=== PATIENT | male | born 1970 | race Caucasian/White ===

== ENCOUNTER → 2016-09-28 | Outpatient (CLI) | payer OTHER ==
[~2016-09-28] MED LIST: LEVO-366 PO
== END | disposition home or self-care (01) ==
LOC: C.LAB 14:58
DX: Z02.83 Encounter for blood-alcohol and blood-drug test (principal)

== ENCOUNTER 2016-09-30 01:31 | Emergency (ER) | payer OTHER ==
[~2016-09-30] VITALS: Ht 182.9 cm; Wt 90.6 kg
[2016-09-30 01:35] VITALS: BP 136/88; PULSE 95; TEMP 37; O2SAT 96; Ht 182.9 cm; Wt 90.6 kg
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
[2016-09-30] MEDS ORDERED: LEVAQUIN 500MG / 100ML D5W IV ONE (02:00)
[2016-09-30] MEDS ORDERED: LEVO-366 PO (02:28)
--- NOTE | 2016-09-30 07:44 | DIAGNOSTIC IMAGING REPORT ---
LEFT ELBOW MIN 3 VIEWS ROUTINE CLINICAL HISTORY: Left elbow pain. Infection with open posterior elbow wound. COMPARISON: None FINDINGS: Extensive postsurgical findings are noted consistent with internal fixation of the distal left humerus and proximal left ulna, including medial and lateral plates of the distal left humerus and olecranon plate. View demonstrates irregularity of a plate of the distal left humerus. There are old screw tracks within the proximal shaft of the left ulna. Small radiodensities along the lateral plate of the distal left humerus are noted. There is soft tissue swelling shown on lateral projection. There is no convincing evidence for joint effusion. No unexpected radiopaque foreign bodies are identified. There is mild lucency surrounding several distal left humeral screws. There is sclerosis of the distal left humerus which suggests a healing fracture. Cortical irregularity is noted. IMPRESSION: 1. Status post distal left humeral and proximal left ulnar internal fixation. Apparent irregularity of the distal left humeral plate shown on lateral projection. This could be artifactual although a disrupted plate could appear similar. Mild lucency surrounding several distal left humeral screws. 2. Lucency and sclerosis of the distal left humerus. This this is nonspecific and likely reflects healing fracture although osteomyelitis could appear similar. Correlation with prior postsurgical imaging would be of benefit. 3. Soft tissue swelling posterior to the distal left humerus. No joint effusion. Electronically signed by: Darin Alonzo M.D. 09/30/2016 7:42 AM Dictated Date/Time: 09/30/2016 7:36 AM
== END 2016-09-30 02:40 | disposition left against medical advice (07) ==
LOC: C.EDB 01:32
DX: S51.012D Laceration without foreign body of left elbow, subsequent encounter (principal); V99.XXXD Unspecified transport accident, subsequent encounter; Z86.19 Personal history of other infectious and parasitic diseases; F17.210 Nicotine dependence, cigarettes, uncomplicated; Z82.49 Family history of ischemic heart disease and other diseases of the circulatory system; Z80.9 Family history of malignant neoplasm, unspecified; Z83.79 Family history of other diseases of the digestive system; Z84.1 Family history of disorders of kidney and ureter

== ENCOUNTER 2022-04-16 11:56 | Inpatient (IN) ==
--- NOTE | 2022-04-16 13:32 | Emergency Department Note ---
Impression & Plan Psychosis, Hallucinations, Homicidal ideation, Agitation ED Provider Note NAME: ONEIL DENNY AGE: 52 SEX: M : 1970 ARRIVES VIA: Ambulance INFORMANT: Patient, ED PROVIDER(S): Jonathon Vigil DO CHIEF COMPLAINT: Altered mental status HPI: The patient is a 52-year-old male who presented to the emergency department for an evaluation of altered mental status. The patient himself states that he has no problems but he states yesterday between 3 and 6 PM he started having weird visual hallucinations. He states it was like flashing lights especially in his left eye. He denies having any headache. He does have a history of seizure but states he did not have a seizure. He denies having any changes to his medications. He was not seen by his primary care physician for these symptoms but his significant other did call 911 and the patient arrived via BLS. He offers no complaints at this time. He denies having any headache or difficulty breathing. He denies having any chest pain. He denies having any weakness in arms or legs. He does complain of some UTI symptoms including groin pain and dysuria. He denies having any fever or headache. ROS: See above HPI for pertinent positives & negatives. A total of 10 systems reviewed and were otherwise negative. PAST MEDICAL HISTORY: See Below PAST SURGICAL HISTORY: See Below FAMILY HISTORY: See Below SOCIAL HISTORY: See Below HOME MEDICATIONS: See Below ALLERGIES: See Below VITALS: See Below PHYSICAL EXAMINATION: GENERAL: Patient is awake alert in no acute distress patient is resting comfortably and appears somewhat anxious and guarded. EYES: The conjunctivae are clear. The pupils are round and reactive. EARS, NOSE, MOUTH AND THROAT: The nose is without any evidence of any deformity. NECK: The neck is nontender and supple. RESPIRATORY: Normal respiratory effort is noted there is no evidence of wheezing rhonchi or rales CARDIOVASCULAR: Regular rate and rhythm noted there no murmurs rubs or gallops normal S1 normal S2. GASTROINTESTINAL: The abdomen is soft. Abdomen is nontender. BACK: No midline tenderness or or step-off noted range of motion in flexion extension as well as rotation no signs of muscle spasm noted MUSCULOSKELETAL/EXTREMITIES: There is no evidence of gross deformity full range of motion is noted in the hips and shoulders. SKIN: There is no obvious evidence of any rash. There are no petechiae, pallor or cyanosis noted. NEUROLOGIC: Patient is awake alert and oriented x3 strength is symmetric patellar reflexes are 2+ bilaterally PSYCH: The patient is awake and somewhat agitated. He appears to be angry at times. He does admit to some homicidal ideation and some hallucinations. MEDICAL DECISION MAKING: The patient is a 52-year-old male who presented to the emergency department initially for a medical evaluation. The patient admitted to having some hallucinations and to be confused at times. Initially a weakness work-up was ordered. During the patient's evaluation he became very agitated. He pulled out his line and left his room. He tried to run away. We tried to redirect the patient multiple times. I reviewed the patient's previous medical visits that show that he does have some episodes of seizure but also has a history of some mental health evaluations in the past. The patient required sedation in the emergency department for his own safety as well as safety of the staff. The patient was reevaluated multiple times. He was medically cleared in the emergency department. He was evaluated by the mental health family service caseworker. A 302 petition was filled out. I did fill out the initial evaluation but the patient at this time is still pending his reevaluation by the mental health delegate. The patient was signed out to Dr. Henry at change of shift. Please see his note for continuation of care and further disposition. Triage Nursing notes reviewed. Prior medical records reviewed Vital Signs: reviewed and remarkable for no significant abnormalities Differential diagnosis: Infection, hypoglycemia, electrolyte abnormalities, overdose, toxicologic, cardiac sources, intracerebral event, neurologic, trauma, as well as other pathologies. ER treatment provided: See below Diagnostics interpreted by me: ECG: EKG was obtained in the emergency department. My interpretation is sinus rhythm at 65 bpm. There is no ectopy. Nonspecific T wave abnormalities were noted in the high lateral and the anterior leads. This was compared to a tracing from January 27, 2022. No changes were noted. Cardiac Monitoring: An order was placed for continuous cardiac monitoring. The monitor shows a rate of 75 bpm with sinus rhythm. Laboratory studies: As stated above and show below. Imaging studies: See below Consultation(s): none ED COURSE: Procedures: none Critical Care: I have personally spent greater than 45 minutes of critical care time in the direct management of this patient. This includes bedside care, interpretation of diagnostic studies, and testing, discussion with consultants, patient, and family members, and other required patient management activities. This 45 minutes is in excess of all separately billable procedures. Past Med/Surg History Medical History Complex partial seizure Migraine Tobacco use disorder (02/26/13) Surgical History History of cholecystectomy History of hand surgery Family History Father Heart disease Mother Cancer Social History Smoking Status: Current every day smoker Tobacco Type: Cigarettes packs per day: 0.50; Feels Safe at Home: Yes Allergies Allergies Allergy/AdvReac Type Severity Reaction Status Date / Time phenytoin Allergy Intermediate HIVES Verified 03/26/22 13:25 valproic acid Allergy Intermediate HIVES Verified 03/26/22 13:25 aspirin AdvReac Unknown BRUISING Verified 03/26/22 13:25 Home Meds Home Medications Medication Instructions Recorded Confirmed buprenorphine 8 mg-naloxone 2 mg 1.5 tab sublingual DAILY 01/27/22 03/26/22 sublingual tablet hydroxyzine HCl 10 mg tablet 10 mg PO BID PRN Anxiety 01/27/22 03/26/22 ibuprofen 200 mg tablet 400 - 600 mg PO Q8 PRN Pain 01/27/22 03/26/22 Previous Rx's Medication Instructions Recorded propranolol 20 mg tablet 20 mg PO BID #60 tabs 03/26/22 sumatriptan succinate 100 mg tablet 100 mg PO DIRECTED PRN Migraine 03/26/22 Headache #9 tabs lamotrigine 100 mg tablet 100 mg PO BID 30 days #60 tabs 04/05/22 lamotrigine 25 mg tablet (Lamictal) 25 mg PO BID 30 days #60 tabs 04/09/22 Results & Data (ED) Vital Signs Vital Signs - 24 hr 04/16/22 12:00 04/16/22 14:43 04/16/22 15:54 Temperature 36.8 C Temperature Source Oral Pulse Rate 63 Pulse Rate [Right Finger] 67 75 Respiratory Rate 18 18 18 Respiratory Effort / Characteristics Non-Labored Non-Labored Respiratory Depth Normal Normal Respiratory Pattern Regular Regular Blood Pressure 117/75 Blood Pressure [Left Arm] 140/88 136/76 Blood Pressure Mean 89 Blood Pressure Mean [Left Arm] 105 96 Blood Pressure Position Semi-fowlers Blood Pressure Position [Left Arm] Lying Pulse Oximetry 96 99 97 Oxygen Delivery Method Room Air Room Air Room Air Sepsis Recent Fever Within 48 Hours No Sepsis New/Unexplained Change in Mental Status N/A Sepsis Action Taken by Nursing No Action Required Home Medications Current Medication List: was personally reviewed by me Laboratory Data Attestation: I reviewed the patient's lab results. Result diagrams: 04/16/22 12:10 04/16/22 12:10 Lab Results 04/16/22 04/16/22 04/16/22 Range/Units 12:10 12:10 12:10 WBC 5.65 (4.8-10.8) K/ul RBC 4.04 L (4.63-6.08) M/uL Hgb 12.5 L (14.0-18.0) g/dl Hct 37.1 L (40.1-51.0) % MCV 91.8 (80.0-100.0) fL MCH 30.9 (25.0-34.0) pg MCHC 33.7 (32.0-36.0) g/dL RDW Std Deviation 46.2 (36.4-46.3) fL RDW Coeff of Roland 13.7 (11.5-14.5) % Plt Count 162 (130-400) K/uL MPV 10.1 (9.4-12.4) fL Immature Gran % (Auto) 0.2 % Neut % (Auto) 73.6 % Lymph % (Auto) 21.8 % [place] % (Auto) 3.7 % Eos % (Auto) 0.2 % Baso % (Auto) 0.5 % Neut # (Auto) 4.16 (1.4-6.5) K/uL Lymph # (Auto) 1.23 (1.2-3.4) K/uL [place] # (Auto) 0.21 L (0.24-0.82) K/uL Eos # (Auto) 0.01 (0-0.50) K/uL Baso # (Auto) 0.03 (0-0.2) K/uL Immature Gran # (Auto) 0.01 (0.00-0.02) K/uL Sodium 135 L (136-145) mmol/L Potassium 4.7 (3.5-5.1) mmol/L Chloride 102 (98-107) mmol/L Carbon Dioxide 26 (21-32) mmol/L Anion Gap 7 (3-11) BUN 25 H (6-23) mg/dl Creatinine 1.46 H (0.6-1.4) mg/dl Est Cr Clr Drug Dosing 57.4 ml/min Est GFR ( Amer) 63.2 ml/min Est GFR (Non-Af Amer) 54.5 ml/min BUN/Creatinine Ratio 17.1 (10-20) Glucose 119 H (70-99(Fasting)) mg/dl Calcium 10.1 (8.5-10.1) mg/dl Total Bilirubin 0.6 (0.2-1.0) mg/dl AST 35 (13-39) U/L ALT 28 (7-52) U/L Alkaline Phosphatase 104 (34-104) U/L Troponin I High Sens 11.6 (0-20) pg/ml Total Protein 8.0 (6.0-8.3) gm/dl Albumin 4.4 (3.4-5.0) gm/dl Globulin 3.6 (2.5-4.0) gm/dl Albumin/Globulin Ratio 1.2 (0.9-2) TSH (0.300-4.500) uIu/ml Urine Color Urine Appearance (Clear) Urine pH (4.5-7.5) Ur Specific [place] (1.000-1.030) Urine Protein (Negative) Urine Glucose (UA) (Negative) Urine Ketones (Negative) Urine Blood (Negative) Urine Nitrite (Negative) Urine Bilirubin (Negative) Urine Urobilinogen (Negative) Ur Leukocyte Esterase (Negative) Urine WBC (Auto) (0-5) /hpf Urine RBC (Auto) (0-4) /hpf U Hyaline Cast (Auto) (0-5) /lpf U Epithel Cells (Auto) (0-5) /lpf Urine Bacteria (Auto) (Negative) Salicylates (3.0-30) mg/dl Urine Opiates Screen (Neg) Ur Methadone, Qual (Neg) Acetaminophen (10-30) ug/ml Urine Barbiturates (Neg) Ur Phencyclidine (PCP) (Neg) U Amphetamin/Meth Scrn (Neg) MDMA (Ecstasy) Screen (Neg) U Benzodiazepines Scrn (Neg) Ur Cocaine Metabolite (Neg) U Marijuana (THC) Screen (Neg) Ethyl Alcohol mg/dL (<10.0) mg/dl SARS-CoV-2, RNA, NAAT (NEGATIVE) 04/16/22 04/16/22 04/16/22 Range/Units 12:10 12:10 15:52 WBC (4.8-10.8) K/ul RBC (4.63-6.08) M/uL Hgb (14.0-18.0) g/dl Hct (40.1-51.0) % MCV (80.0-100.0) fL MCH (25.0-34.0) pg MCHC (32.0-36.0) g/dL RDW Std Deviation (36.4-46.3) fL RDW Coeff of Roland (11.5-14.5) % Plt Count (130-400) K/uL MPV (9.4-12.4) fL Immature Gran % (Auto) % Neut % (Auto) % Lymph % (Auto) % [place] % (Auto) % Eos % (Auto) % Baso % (Auto) % Neut # (Auto) (1.4-6.5) K/uL Lymph # (Auto) (1.2-3.4) K/uL [place] # (Auto) (0.24-0.82) K/uL Eos # (Auto) (0-0.50) K/uL Baso # (Auto) (0-0.2) K/uL Immature Gran # (Auto) (0.00-0.02) K/uL Sodium (136-145) mmol/L Potassium (3.5-5.1) mmol/L Chloride (98-107) mmol/L Carbon Dioxide (21-32) mmol/L Anion Gap (3-11) BUN (6-23) mg/dl Creatinine (0.6-1.4) mg/dl Est Cr Clr Drug Dosing ml/min Est GFR ( Amer) ml/min Est GFR (Non-Af Amer) ml/min BUN/Creatinine Ratio (10-20) Glucose (70-99(Fasting)) mg/dl Calcium (8.5-10.1) mg/dl Total Bilirubin (0.2-1.0) mg/dl AST (13-39) U/L ALT (7-52) U/L Alkaline Phosphatase (34-104) U/L Troponin I High Sens (0-20) pg/ml Total Protein (6.0-8.3) gm/dl Albumin (3.4-5.0) gm/dl Globulin (2.5-4.0) gm/dl Albumin/Globulin Ratio (0.9-2) TSH 1.472 (0.300-4.500) uIu/ml Urine Color Urine Appearance (Clear) Urine pH (4.5-7.5) Ur Specific [place] (1.000-1.030) Urine Protein (Negative) Urine Glucose (UA) (Negative) Urine Ketones (Negative) Urine Blood (Negative) Urine Nitrite (Negative) Urine Bilirubin (Negative) Urine Urobilinogen (Negative) Ur Leukocyte Esterase (Negative) Urine WBC (Auto) (0-5) /hpf Urine RBC (Auto) (0-4) /hpf U Hyaline Cast (Auto) (0-5) /lpf U Epithel Cells (Auto) (0-5) /lpf Urine Bacteria (Auto) (Negative) Salicylates < 3.0 L (3.0-30) mg/dl Urine Opiates Screen (Neg) Ur Methadone, Qual (Neg) Acetaminophen < 3 L (10-30) ug/ml Urine Barbiturates (Neg) Ur Phencyclidine (PCP) (Neg) U Amphetamin/Meth Scrn (Neg) MDMA (Ecstasy) Screen (Neg) U Benzodiazepines Scrn (Neg) Ur Cocaine Metabolite (Neg) U Marijuana (THC) Screen (Neg) Ethyl Alcohol mg/dL < 10.0 (<10.0) mg/dl SARS-CoV-2, RNA, NAAT (NEGATIVE) 04/16/22 04/16/22 04/16/22 Range/Units Unknown Unknown Unknown WBC (4.8-10.8) K/ul RBC (4.63-6.08) M/uL Hgb (14.0-18.0) g/dl Hct (40.1-51.0) % MCV (80.0-100.0) fL MCH (25.0-34.0) pg MCHC (32.0-36.0) g/dL RDW Std Deviation (36.4-46.3) fL RDW Coeff of Roland (11.5-14.5) % Plt Count (130-400) K/uL MPV (9.4-12.4) fL Immature Gran % (Auto) % Neut % (Auto) % Lymph % (Auto) % [place] % (Auto) % Eos % (Auto) % Baso % (Auto) % Neut # (Auto) (1.4-6.5) K/uL Lymph # (Auto) (1.2-3.4) K/uL [place] # (Auto) (0.24-0.82) K/uL Eos # (Auto) (0-0.50) K/uL Baso # (Auto) (0-0.2) K/uL Immature Gran # (Auto) (0.00-0.02) K/uL Sodium (136-145) mmol/L Potassium (3.5-5.1) mmol/L Chloride (98-107) mmol/L Carbon Dioxide (21-32) mmol/L Anion Gap (3-11) BUN (6-23) mg/dl Creatinine (0.6-1.4) mg/dl Est Cr Clr Drug Dosing ml/min Est GFR ( Amer) ml/min Est GFR (Non-Af Amer) ml/min BUN/Creatinine Ratio (10-20) Glucose (70-99(Fasting)) mg/dl Calcium (8.5-10.1) mg/dl Total Bilirubin (0.2-1.0) mg/dl AST (13-39) U/L ALT (7-52) U/L Alkaline Phosphatase (34-104) U/L Troponin I High Sens (0-20) pg/ml Total Protein (6.0-8.3) gm/dl Albumin (3.4-5.0) gm/dl Globulin (2.5-4.0) gm/dl Albumin/Globulin Ratio (0.9-2) TSH (0.300-4.500) uIu/ml Urine Color Yellow Urine Appearance Clear (Clear) Urine pH 5.5 (4.5-7.5) Ur Specific [place] 1.018 (1.000-1.030) Urine Protein 2+ H (Negative) Urine Glucose (UA) Negative (Negative) Urine Ketones Negative (Negative) Urine Blood Negative (Negative) Urine Nitrite Negative (Negative) Urine Bilirubin Negative (Negative) Urine Urobilinogen Negative (Negative) Ur Leukocyte Esterase Negative (Negative) Urine WBC (Auto) 0 (0-5) /hpf Urine RBC (Auto) 0-4 (0-4) /hpf U Hyaline Cast (Auto) 0 (0-5) /lpf U Epithel Cells (Auto) 0-5 (0-5) /lpf Urine Bacteria (Auto) Negative (Negative) Salicylates (3.0-30) mg/dl Urine Opiates Screen Neg (Neg) Ur Methadone, Qual Neg (Neg) Acetaminophen (10-30) ug/ml Urine Barbiturates Neg (Neg) Ur Phencyclidine (PCP) Neg (Neg) U Amphetamin/Meth Scrn Neg (Neg) MDMA (Ecstasy) Screen Neg (Neg) U Benzodiazepines Scrn Neg (Neg) Ur Cocaine Metabolite Neg (Neg) U Marijuana (THC) Screen Neg (Neg) Ethyl Alcohol mg/dL (<10.0) mg/dl SARS-CoV-2, RNA, NAAT NEGATIVE (NEGATIVE) Administered Medications Discontinued Medications Haloperidol Lactate (Haloperidol Lactate 5 Mg/Ml 1 Ml Vial) 5 mg IM NOW STA Stop: 04/16/22 14:53 Last Admin: 04/16/22 15:00 Dose: 5 mg Documented By: SRIRAM Haloperidol Lactate (Haloperidol Lactate 5 Mg/Ml 1 Ml Vial) 5 mg IM NOW STA Stop: 04/16/22 15:14 Last Admin: 04/16/22 15:18 Dose: 5 mg Documented By: MT Lorazepam (Lorazepam 1 Mg/1 Ml Syr) 1 mg IM NOW STA; Protocol Stop: 04/16/22 14:53 Last Admin: 04/16/22 15:01 Dose: 1 mg Documented By: [facility] Imaging Data Radiologist's Impression: Head CT 04/16/22 13:29 CT OF THE HEAD WITHOUT CONTRAST CLINICAL HISTORY: Altered mental status. COMPARISON STUDY: MRI of the brain December 14, [address] March 30, 2022. CT DOSE: 614.27 mGy.cm TECHNIQUE: Helical axial images of the head were obtained without IV contrast. Automated exposure control was utilized for the study. A dose lowering technique was utilized adhering to the principles of ALARA. FINDINGS: No acute intracranial hemorrhage, midline shift or mass effect is present. White matter hypodensities are unchanged and favor small vessel disease. The ventricular system is unremarkable. The basal cisterns are patent. No extra-axial collections are present. There are no findings to suggest acute dural sinus thrombosis or acute territorial infarct. No significant calvarial abnormalities are present. Visualized portions of the sinuses and mastoid air cells are clear. IMPRESSION: No acute intracranial findings. ACT 112: Negative or not required by law. Electronically signed by: Darin Alonzo M.D. 04/16/2022 5:04 PM Discharge Plan Visit Data Chief Complaint: Mental Health Evaluation ED Provider: Jonathon Vigil Discharge Problem: Psychosis, Hallucinations, Homicidal ideation, Agitation Patient Disposition: Still a Patient Forms Stand Alone Forms: [facility], Suicide Prevention Resources Prescriptions Prescriptions: No Action lamotrigine 100 mg tablet 100 mg PO BID 30 Days Qty: 60 5RF Rx Instructions: 125mg BID lamotrigine [Lamictal] 25 mg tablet 25 mg PO BID 30 Days Qty: 60 5RF Rx Instructions: total 125mg BID propranolol 20 mg tablet 20 mg PO BID Qty: 60 5RF sumatriptan succinate 100 mg tablet 100 mg PO DIRECTED PRN (Reason: Migraine Headache) Qty: 9 5RF Rx Instructions: take one at onset of migraine, may repeat after two hours prn, limit 2-3 days a week ibuprofen 200 mg Tablet 400 - 600 mg PO Q8 PRN (Reason: Pain) hydroxyzine HCl 10 mg tablet 10 mg PO BID PRN (Reason: Anxiety) buprenorphine-naloxone 8-2 mg tablet, sublingual 1.5 tab SUBLINGUAL DAILY Referrals Referrals: Brandon Greer [Primary Care Provider] -
[2022-04-16 13:33] LABS: Appearance Urine Clear (Clear); Bacteria Urine Automated Negative (Negative); Bilirubin Urine Negative (Negative); Blood Urine Negative (Negative); Cast Urine Automated 0 /lpf (0-5); Color Urine Yellow; Epithelial Cell Urine Auto 0-5 /lpf (0-5); Glucose Urine UA Negative (Negative); Ketones Urine Negative (Negative); Leukocyte Esterase Urine Negative (Negative); Nitrite Urine Negative (Negative); Protein Urine 2+ (Negative); RBC Urine Automated 0-4 /hpf (0-4); Specific Gravity Urine 1.018 (1.000-1.030); Urobilinogen Urine Negative (Negative); WBC Urine Automated 0 /hpf (0-5); pH Urine 5.5 (4.5-7.5)
[2022-04-16 14:48] LABS: Basophils # (auto) 0.03 K/uL (0-0.2); Basophils % (auto) 0.5 %; Eosinophils # (auto) 0.01 K/uL (0-0.50); Eosinophils % (auto) 0.2 %; Hematocrit (blood only) 37.1 % (40.1-51.0); Hemoglobin 12.5 g/dl (14.0-18.0); Immature Granulocytes # (auto) 0.01 K/uL (0.00-0.02); Immature Granulocytes % (auto) 0.2 %; Lymphocytes # (auto) 1.23 K/uL (1.2-3.4); Lymphocytes % (auto) 21.8 %; Mean Corpuscular Hemoglobin 30.9 pg (25.0-34.0); Mean Corpuscular Hgb Conc 33.7 g/dL (32.0-36.0); Mean Corpuscular Volume 91.8 fL (80.0-100.0); Mean Platelet Volume 10.1 fL (9.4-12.4); Monocytes # (auto) 0.21 K/uL (0.24-0.82); Monocytes % (auto) 3.7 %; Neutrophils # (auto) 4.16 K/uL (1.4-6.5); Neutrophils % (auto) 73.6 %; Platelet Count 162 K/uL (130-400); RDW Coefficient of Variation 13.7 % (11.5-14.5); RDW Standard Deviation 46.2 fL (36.4-46.3); Red Blood Count 4.04 M/uL (4.63-6.08); White Blood Count 5.65 K/ul (4.8-10.8)
[2022-04-16] MEDS ORDERED: HALOPERIDOL LACTATE 5 MG/ML 1 ML VIAL IM STA ×2 (14:52→15:13)
[2022-04-16] MEDS ORDERED: LORazepam 1 MG/1 ML SYR IM STA (14:52)
[2022-04-16 15:07] LABS: Albumin Globulin Ratio 1.2 (0.9-2); Albumin Level 4.4 gm/dl (3.4-5.0); BUN Creatinine Ratio 17.1 (10-20); Bilirubin,Total 0.6 mg/dl (0.2-1.0); Calcium 10.1 mg/dl (8.5-10.1); Creatinine Clr Calc Pharmacy 57.4 ml/min; Est GFR (African American) 63.2 ml/min; Est GFR (Non-African American) 54.5 ml/min; Globulin 3.6 gm/dl (2.5-4.0); Potassium 4.7 mmol/L (3.5-5.1)
--- NOTE | 2022-04-16 15:36 | Electrocardiogram Report ---
Test Reason : Blood Pressure : / mmHG Vent. Rate : 065 BPM Atrial Rate : 064 BPM P-R Int : 156 ms QRS Dur : 088 ms QT Int : 400 ms P-R-T Axes : 064 006 069 degrees QTc Int : 416 ms Poor data quality, interpretation may be adversely affected Sinus rhythm Normal ECG When compared with ECG of 27-JAN-2022 00:21, No significant change Confirmed by Adolfo De La Fuente ([id number]) on 04/16/2022 3:35:51 PM Referred By: Confirmed By:Adolfo De La Fuente
[2022-04-16 16:48] LABS: Acetaminophen < 3 ug/ml (10-30); Salicylate < 3.0 mg/dl (3.0-30)
--- NOTE | 2022-04-16 17:06 | CT Scan Report ---
CT OF THE HEAD WITHOUT CONTRAST CLINICAL HISTORY: Altered mental status. COMPARISON STUDY: MRI of the brain December 14, [address] March 30, 2022. CT DOSE: 614.27 mGy.cm TECHNIQUE: Helical axial images of the head were obtained without IV contrast. Automated exposure con trol was utilized for the study. A dose lowering technique was utilized adhering to the principles o f ALARA. FINDINGS: No acute intracranial hemorrhage, midline shift or mass effect is present. White matter hyp odensities are unchanged and favor small vessel disease. The ventricular system is unremarkable. The basal cisterns are patent. No extra-axial collections are present. There are no findings to suggest a cute dural sinus thrombosis or acute territorial infarct. No significant calvarial abnormalities are present. Visualized portions of the sinuses and mastoid air cells are clear. IMPRESSION: No acute intracranial findings. ACT 112: Negative or not required by law. Electronically signed by: Darin Alonzo M.D. 04/16/2022 5:04 PM
[2022-04-16 18:19] LABS: Amphetamines+Metham, Urine Neg (Neg); Barbiturates, Urine Neg (Neg); Benzodiazepine, Urine Neg (Neg); Cocaine, Urine Neg (Neg); MDMA (Ecstacy), Urine Neg (Neg); Methadone, Urine Neg (Neg); Opiate, Urine Neg (Neg); Phencyclidine, Urine Neg (Neg)
--- NOTE | 2022-04-16 19:24 | Emergency Department Note ---
ED Visit Note This patient was signed out to me at shift change by Dr. Vigil. The patient was previously medically cleared and had been given Haldol and Ativan for sedation. He also had a [address] Vigil due to paranoid thoughts and psychosis. I went back and checked on the patient multiple times he is confused about why he was here looking back through his records he has presented like this before. Is there is a history of substance abuse although his drug screen was negative. He was doing okay were able to get the restraints off and he was fine for couple hours but confused he then got agitated again and we had to chemically sedate him with Ativan 1 mg and Haldol 5 mg again. Soft restraints were applied as well. Looking through his chart he does not have any history of mental health disorder although substance abuse. He was seen and admitted to medicine a couple months ago for similar but signed out AMA. I do not think he is able to go home at this point, I did consult Dr. Veloz who saw the patient in ER and will admit him medically. . : Psychosis Qualifiers: Psychosis type: unspecified psychosis type Qualified Code(s): F29 - Unspecified psychosis not due to a substance or known physiological condition
[2022-04-17] MEDS ORDERED: LORazepam 1 MG/1 ML SYR IM STA ×3 (00:25→02:56)
[2022-04-17] MEDS ORDERED: HALOPERIDOL LACTATE 5 MG/ML 1 ML VIAL IM STA (00:25)
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
[2022-04-17] MEDS ORDERED: LORazepam 1 MG/1 ML SYR IV STA ×2 (01:43→03:16)
[2022-04-17] MEDS ORDERED: LORazepam 2 MG in SYRINGE 0 ML IV ONE (02:00)
[2022-04-17] MEDS ORDERED: LORazepam 1 MG/1 ML SYR IM ONE ×2 (02:20→03:05)
[2022-04-17] MEDS: LACTATED RINGER'S 1,000 ML IV SCH ×2 (03:48→11:08)
[2022-04-17] MEDS: HALOPERIDOL LACTATE 5 MG/ML 1 ML VIAL IV PRN ×4 (04:06→17:14)
[2022-04-17 04:22] LABS: Magnesium 1.7 mg/dl (1.7-2.4); Phosphorus 3.1 mg/dl (2.5-4.9)
[2022-04-17] MEDS: LORazepam 1 MG in SYRINGE 0 ML IV PRN ×2 (04:26→13:35)
[2022-04-17 04:55] LABS: Lyme Ab IgG w/WB Rflx Negative (Negative); Lyme Ab IgM w/WB Rflx Negative (Negative)
[2022-04-17] MEDS ORDERED: MoRPHine SULFATE 2 MG/ML CARP IV STA (05:01)
[2022-04-17] MEDS ORDERED: ZIPRASIDONE 20 MG/ML SDV IM STA (06:13)
[2022-04-17 07:31] LABS: Basophils # (auto) 0.02 K/uL (0-0.2); Basophils % (auto) 0.3 %; Eosinophils # (auto) 0.01 K/uL (0-0.50); Eosinophils % (auto) 0.1 %; Hematocrit (blood only) 32.2 % (40.1-51.0); Hemoglobin 11.2 g/dl (14.0-18.0); Immature Granulocytes # (auto) 0.02 K/uL (0.00-0.02); Immature Granulocytes % (auto) 0.3 %; Lymphocytes # (auto) 1.81 K/uL (1.2-3.4); Lymphocytes % (auto) 26.7 %; Mean Corpuscular Hemoglobin 30.9 pg (25.0-34.0); Mean Corpuscular Hgb Conc 34.8 g/dL (32.0-36.0); Mean Platelet Volume 9.5 fL (9.4-12.4); Monocytes % (auto) 8.8 %; Neutrophils # (auto) 4.32 K/uL (1.4-6.5); Neutrophils % (auto) 63.8 %; Platelet Count 132 K/uL (130-400); RDW Coefficient of Variation 13.3 % (11.5-14.5); RDW Standard Deviation 43.5 fL (36.4-46.3); Red Blood Count 3.62 M/uL (4.63-6.08); White Blood Count 6.78 K/ul (4.8-10.8)
[2022-04-17 07:59] LABS: Albumin Level 4.1 gm/dl (3.4-5.0); BUN Creatinine Ratio 21.9 (10-20); Bilirubin Direct 0.2 mg/dl (0-0.2); Bilirubin,Total 0.9 mg/dl (0.2-1.0); Calcium 9.8 mg/dl (8.5-10.1); Creatinine Clr Calc Pharmacy 55.8 ml/min; Est GFR (African American) 56.6 ml/min; Est GFR (Non-African American) 48.8 ml/min; Potassium 3.8 mmol/L (3.5-5.1); Total Protein 7.4 gm/dl (6.0-8.3)
--- NOTE | 2022-04-17 08:24 | Hospitalist Progress Note ---
Date of Service April 17, 2022 Assessment & Plan (1) Metabolic encephalopathy: Plan: 52-year-old male past medical history significant for depression, migraine, complex partial seizures follows with neurology admitted for altered mental status/psychosis/metabolic encephalopathy. Metabolic encephalopathy: Presented via EMS due to altered mental status per partner, with agitation in ER and erratic odd behaviors. Admission alcohol level negative, and urine tox screen is negative. Salicylate and Tylenol levels negative. Urinalysis, chest x-ray without evidence of infection. No fevers or leukocytosis. Procalcitonin normal. BCx/UCx pending. Broad-spectrum antibiotics started 04/17 to cover for meningoencephalitis while MRI pending. Lyme and RPR pending. COVID-19 negative. TSH normal. Ammonia level normal. Creatinine 1.6 which is actually down from baseline. Normal urine and serum osmolality without osmolar gap. CT head without evidence of acute intracranial findings. Brain MRI ordered with seizure protocol given patient's history of complex partial seizures. Neurology consulted and appreciate recommendations: Keppra load 1500mg given, and continue 500mg twice daily. Resume Lamictal when able. EEG to be performed. Psychiatry consulted and appreciate recommendations: Suspect acute encephalopathy/agitated delirium. No evidence of NMS or serotonin syndrome, trend CK. Patient will require one-to-one due to 302 warrant and risk of elopement. Patient was transferred to ICU after receiving multiple doses of haloperidol and Ativan without ability to calm down patient's agitation. Precedex was started by ICU provider. QTc 418. (2) History of drug abuse in remission: Plan: History of drug use in remission. Patient is on Suboxone and per patient's partner he has not missed any doses or taking extra doses. Per partner, he will sometimes have an alcoholic beverage when they go out to dinner or with friends, however not with any regularity. (3) Complex partial seizure disorder: Plan: History of. Unclear if patient is having seizure activity, therefore EEG ordered. Keppra load given as above with twice daily Keppra while admitted. Neurology to follow. (4) Migraine: Plan: History of migraine on Imitrex as needed. (5) Anemia: Plan: History of with hemoglobin 1012 over the last several years. Likely anemia of chronic disease. (6) CKD (chronic kidney disease): Plan: CKD with a baseline creatinine around 1.5, though has had a large range over the last several months. Avoid nephrotoxins and renally dose medications. Plan Full code N.p.o. Low risk for DVT ICU; will continue to follow for eventual downgrade Admission and Anticipated Discharge Date Admission Date: April 17, 2022 Subjective Overnight patient required several doses of Haldol, Ativan, as well as a dose of Geodon for psychomotor agitation. He was also in four-point restraints overnight secondary to concerns regarding his personal safety or intent to harm others. Due to his cognitive status I am unable to ask him any clarifying questions. At times when he responds to my questions, the answers are jumbled and he appears to be answering questions that I am asking. He also appears to be responding to external stimuli at times. Review of Systems Review of Systems: Unobtainable due to mental health condition Physical Exam Constitutional: well developed, + ill appearing, + thin and + disheveled Eyes: PERRL, conjunctivae normal, anicteric sclerae ENMT: External ear and nose normal. Poor dentition. Respiratory: normal respiratory effort, lungs clear to auscultation Cardiovascular: RRR, no murmur, no edema (tachycardic) Gastrointestinal (Abdomen): normal bowel sounds, soft, nontender, no hepatosplenomegaly Musculoskeletal: no cyanosis or clubbing, extremities motor strength 5/5 Skin: no rashes, warm and dry Neurologic: Waxing and waning agitation with somnolence. Moves all extremities, and has good motor strength with all extremities. No slurred speech. Does not answer questions appropriately and at times appears to be responding to external stimuli. Psychiatric: restless, agitated, pulling at restraints Genitourinary: Estrada in place Lymphatic: no cervical or axillary lymphadenopathy Results & Data Results & Data ([facility]) Vital Signs (Past 12 Hours) Vital Signs Temp Pulse Pulse Resp BP Pulse Ox O2 Del Method 04/17/22 07:15 36.7 C 117 H 22 100/67 95 Room Air 04/17/22 02:59 36.3 C L 94 H 18 164/77 H 94 Room Air 04/17/22 02:53 Room Air 04/17/22 02:41 100 H 18 124/71 97 Room Air PG Care Time/CCT Total # of Minutes Spent Total Time Spent with Patient: Total time spent is greater than 50% in coordination of care (as documented) at patient's floor/unit and/or counseling patient: Coding Level of Care Code 26788 Subseq Hosp Care Lvl 3 Diagnoses Metabolic encephalopathy G93.41 History of drug abuse in remission F19.11 Complex partial seizure disorder G40.209 Migraine G43.909 Anemia D64.9 CKD (chronic kidney disease) N18.9
[2022-04-17] MEDS ORDERED: PROPRANOLOL HCL 20 MG TAB PO SCH (09:00)
[2022-04-17] MEDS: lamoTRIgine 25 MG TAB PO SCH ×2 (09:37→20:59)
[2022-04-17] MEDS: lamoTRIgine 100 MG TAB PO SCH ×2 (09:37→20:59)
[2022-04-17] MEDS: BUPRENORPHINE/NALOXONE 8/2 MG TAB SL SCH (09:37)
[2022-04-17] MEDS ORDERED: levETIRAcetam 1,500 MG in 0.9 % SODIUM CHLORIDE 100 ML IV STA (10:04)
--- NOTE | 2022-04-17 10:35 | Neurology Consultation ---
Date of Consultation April 17, 2022 Assessment & Plan (1) Encephalopathy: (2) Myoclonus: Plan 52-year-old male with a history of epilepsy and migraine presenting with agitated delirium, myoclonic jerking. I do of some concern for seizure activity in this patient and have ordered a loading dose of IV Keppra, 1500 mg. I have also ordered an EEG. Continue with Keppra 500 mg IV every 12 hours. Resume lamotrigine when able to take oral medication. Would consider increasing the lamotrigine dosage, however, depending on patient's clinical status. Would also recommend obtaining an up-to-date brain MRI, seizure protocol, without contrast, when patient's agitation improves. Patient's clinical presentation is not highly suggestive of stroke or encephalitis. Continue supportive medical care. History of Present Illness Reason for Consultation: Altered mental status Requesting Physician: Dr. Veloz Attending Physician: Kathy William, DO History of Present Illness The patient is a 52-year-old male who is known to me, he was last seen in neurol ogy clinic March 26, 2022 for seizures and migraine. He has had 3-4 generalized tonic-clonic seizures in the past. He also experiences episodic myoclonus. A brain MRI completed last December revealed chronic microvascular ischemic change and an incidental left cerebellopontine angle arachnoid cyst. An EEG completed in February 2020 was normal. Experiences migrainous headache every 1 to 2 weeks with associated nausea and light sensitivity. History also notable for IV drug abuse, methadone previously, more recently on Suboxone. 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 [facility] neurology has been prescribing this patient sumatriptan hand for his migraines and lamotrigine for seizures. He has previously been prescribed Depakote, phenytoin, and Keppra. He has had hives with use of phenytoin and valproic acid previously. The patient presented to the emergency department yesterday with altered mental status beginning the previous day, complained of seeing flashing lights with the left eye, no associated headache. Had also been confused at times. Became very agitated during his initial assessment, pulling out lines, attempting to leave the emergency department, required redirection. Was evaluated by the mental health case resource manager, 302 petition was filled out. Had apparently been having paranoid thoughts and psychosis. Was given lorazepam and Haldol to address ongoing agitation, also required restraints. Due to ongoing agitation, delirium, patient has been transferred to the ICU. He is an unreliable historian, nurse at bedside. He continues to exhibit irregular myoclonic jerking of the limbs. He will open his eyes, will not follow commands. Becomes agitated, attempts to sit up, grabbed at lines. I see that he was evaluated in the emergency department on March 30, 2022 for mental health evaluation, brought in by police, found to be intoxicated and trying to break into people's cars. He was evaluated by psychiatric case resource manager at that time and cleared for discharge, medically cleared as well. Allergies Allergy/AdvReac Type Severity Reaction Status Date / Time phenytoin Allergy Intermediate HIVES Verified 03/26/22 13:25 valproic acid Allergy Intermediate HIVES Verified 03/26/22 13:25 aspirin AdvReac Unknown BRUISING Verified 03/26/22 13:25 Home Medications Medication Instructions Recorded Confirmed Type buprenorphine 8 mg-naloxone 2 mg 1.5 tab sublingual DAILY 01/27/22 03/26/22 History sublingual tablet hydroxyzine HCl 10 mg tablet 10 mg PO BID PRN Anxiety 01/27/22 03/26/22 History ibuprofen 200 mg tablet 400 - 600 mg PO Q8 PRN Pain 01/27/22 03/26/22 History propranolol 20 mg tablet 20 mg PO BID #60 tabs 03/26/22 03/26/22 Rx sumatriptan succinate 100 mg tablet 100 mg PO DIRECTED PRN Migraine 03/26/22 03/26/22 Rx Headache #9 tabs lamotrigine 100 mg tablet 100 mg PO BID 30 days #60 tabs 04/05/22 Rx lamotrigine 25 mg tablet (Lamictal) 25 mg PO BID 30 days #60 tabs 04/09/22 Rx Patient History Medical History Complex partial seizure Migraine Tobacco use disorder (02/26/13) Surgical History History of cholecystectomy History of hand surgery Family History Father Heart disease Mother Cancer Social History Smoking Status: Unknown if ever smoked Tobacco Type: Cigarettes packs per day: 0.50; Hx Substance Use: Yes Last Used Substance Other:: unknown Preferred Language: Frisian Loom Stop Checker Required: No Current Living Situation: Family Current Living Situation Comment: brought in by EMS, pt very disoriented and confused Feels Safe at Home: Yes Review of Systems Review of Systems: Unobtainable due to cognitive status Exam (Neuro) Constitutional: + thin and + altered mental status Cardiovascular: Vessels: no carotid bruit Neurologic: Oriented to:: negative Person, Place or Time Memory: negative Short Term Intact or Remote Intact Attention: negative Span Intact or Concentration Intact Speech Fluency: Limited Comprehension Fund of Knowledge: negative Current Events, Past History or Vocabulary Cranial Nerves: Normal II, III, IV, , V, VII, VIII, IX, X, XI and XII Motor Strength: Normal Lower Extremities and Normal Upper Extremities Motor Tone: Normal Lower Extremities and Normal Upper Extremities Muscle Bulk/Involuntary Movements: negative No Involuntary Movements (Intermittent generalized myoclonic jerking of the limbs observed) Deep Tendon Reflexes: Rt Biceps: 2+, Lt Biceps: 2+, Rt Patellar: 2+ and Lt Patellar: 2+ Details: Unable to reliably assess individual sensory modalities due to altered mental status. Withdraws limbs to noxious stimulation. Unable to reliably assess coordination due to altered mental status. Limited evaluation of deep tendon reflexes due to agitated delirium. Unable to evaluate gait due to agitated delirium. Unable to perform direct ophthalmoscopic examination. Results & Data ([facility]) Vital Signs (Past 12 Hours) Vital Signs Temp Pulse Pulse Resp BP Pulse Ox O2 Del Method 04/17/22 08:15 96 H 14 100/66 94 Room Air 04/17/22 07:15 36.7 C 117 H 22 100/67 95 Room Air 04/17/22 02:59 36.3 C L 94 H 18 164/77 H 94 Room Air 04/17/22 02:53 Room Air 04/17/22 02:41 100 H 18 124/71 97 Room Air Laboratory Results WBC 6.78, hemoglobin 11.2, hematocrit 32.2, MCV 89.0, platelet count 132, sodium 138, potassium 3.8, BUN 35, creatinine 1.60, glucose 106, calcium 9.8, magnesium 1.7, AST 56, ALT 27, total CK 1882, TSH 1.472, urine tox screen negative, ethyl alcohol negative, Lyme screen negative, SARS-CoV-[address] of the head completed yesterday negative for hemorrhage or acute process. There is evidence of chronic small vessel ischemic disease. No hydrocephalus. I reviewed the images as well as the radiologist's interpretation of this test. Brain MRI completed at [facility] December 14, 2020 was negative for acute process at that time. There is evidence of mild generalized atrophy and chronic microvascular ischemic disease as well as an incidental 2.5 cm left cerebellopon arlette angle arachnoid cyst. I independently reviewed the images as well as the radiologist's interpretation of this test. Electrocardiogram completed December 14, 2021 revealed a sinus rhythm, 65 bpm. Coding Level of Care Code 48488 Initial Inpt Care Lvl 3 Diagnoses Encephalopathy G93.40 Myoclonus G25.3
--- NOTE | 2022-04-17 13:49 | Psychiatric Consultation ---
Date of Consultation April 17, 2022 Impression / Recommendations Impression 52 yo with history of depression, seizures and substance use (on maintenance suboxone) presenting with acute mental status changes, agitation and visual hallucinations. Presentation last month for alcohol intoxication and odd behaviors and refused UDS at that time. Diagnostically consistent with acute encephalopathy, agitated delirium. Unclear if substance-induced vs withdrawal could be a component including from alcohol but UDS negative. Sometimes can see such presentation with PCP use which does not always show up consistently in UDS. QTc normal at this time. No signs to suggest NMS nor serontonin syndrome at this point but would continue to trend CK and monitor vitals closely. (1) Encephalopathy: Plan -Ativan 1-2 mg q2h prn (try not to exceed 12mg max per day) as preference for agitation -If ativan unsuccessful or causing paradoxical increase in agitation would use: thorazine 50mg IM q6h prn up to max dose of 200mg per 24 hours. Would use this only if necessary as can lower seizure threshold and potential for QTc prolongation -Alternative option would be valproic acid IV, would defer to neurology on dosing but can also help with agitation, but has allergy of hives from valproic so would attempt to avoid in favor of choices above. Psych History Identifying Data 52 yo man with history of depression and seziures admitted for confusion. Psychiatry consulted for diagnostic and medication recommendations. Chief Complaint "yeah". History of Present Illness Raúl presented to the ED on 04/16/22 after experiencing visual hallucinations and subsequently became confused and agitated, pulling out his IV line and attempting to elope resulting in 302 warrant. He presented to the ED on 03/30/22 after attempting to break into cars and intoxicated but refused to provide a UDS at that time. Since arriving to the ED yesterday he provided UDS which was negative and has been consistently agitated requiring multiple doses of IM medication including: IV ativan, haldol IM, ziprasidone IM. On my assessment he is oriented to self only, mumbles incoherently and attempts to get out of bed requiring reassurance and was requiring 4 point restraints due to level of agitation and necessity for IV line to allow for keppra infusion. Past Psychiatric History Previous Psych History: depression Previous Psych Admissions: none known Past Medication Trials: lamictal for seizure prevention Allergies Allergy/AdvReac Type Severity Reaction Status Date / Time phenytoin Allergy Intermediate HIVES Verified 03/26/22 13:25 valproic acid Allergy Intermediate HIVES Verified 03/26/22 13:25 aspirin AdvReac Unknown BRUISING Verified 03/26/22 13:25 Home Medications Medication Instructions Recorded Confirmed Type buprenorphine 8 mg-naloxone 2 mg 1.5 tab sublingual DAILY 01/27/22 03/26/22 History sublingual tablet hydroxyzine HCl 10 mg tablet 10 mg PO BID PRN Anxiety 01/27/22 03/26/22 History ibuprofen 200 mg tablet 400 - 600 mg PO Q8 PRN Pain 01/27/22 03/26/22 History propranolol 20 mg tablet 20 mg PO BID #60 tabs 03/26/22 03/26/22 Rx sumatriptan succinate 100 mg tablet 100 mg PO DIRECTED PRN Migraine 03/26/22 03/26/22 Rx Headache #9 tabs lamotrigine 100 mg tablet 100 mg PO BID 30 days #60 tabs 04/05/22 Rx lamotrigine 25 mg tablet (Lamictal) 25 mg PO BID 30 days #60 tabs 04/09/22 Rx Substance Abuse History on suboxone per PDMP appears to be getting regular refills Patient History Medical History Complex partial seizure Migraine Tobacco use disorder (02/26/13) Surgical History History of cholecystectomy History of hand surgery Family History Father Heart disease Mother Cancer Social History Smoking Status: Unknown if ever smoked Tobacco Type: Cigarettes packs per day: 0.50; Hx Substance Use: Yes Last Used Substance Other:: unknown Preferred Language: Divehi Help Desk Administrator Required: No Current Living Situation: Family Current Living Situation Comment: brought in by EMS, pt very disoriented and confused Feels Safe at Home: Yes Physical Exam Psychiatric: Orientation: alert and oriented to person; + not oriented to place and + not oriented to time Apperance: + disheveled Eye Contact: + poor eye contact Motor Behavior: + psychomotor agitation; n EPS and n tremor Speech: + abnormal rate/rhythm/volume of speech (brief ) Affect: + flat affect Mood: + irritable mood Thought Process: + looseness of associations Thought Content: + preoccupation Cognition: + recent memory not intact, + attention not intact and + language not intact Insight: + severely impaired insight Judgement: + severely impaired judgement Vital Signs (Past 24 Hours): Last Vital Signs Temp 36.7 C 04/17/22 07:15 Pulse 82 04/17/22 13:00 Resp 13 04/17/22 13:00 BP 106/69 04/17/22 13:00 Pulse Ox 96 04/17/22 13:00 O2 Del Method 04/17/22 13:00 Review of Systems Unobtainable due to cognitive status Results & Data ([facility]) Laboratory Results elevated CK, negative UDS Diagnostic Findings QTc 416 Medications Administered Buprenorphine/Naloxone (Buprenorphine/Naloxone 8/2 Mg Tab) 1.5 tab SL DAILY ELVIN Stop: 05/17/22 08:59 Last Admin: 04/17/22 09:37 Dose: Not Given Documented By: URSULA Haloperidol Lactate (Haloperidol Lactate 5 Mg/Ml 1 Ml Vial) 5 mg IV Q6H PRN PRN Reason: Agitation Stop: 05/17/22 03:21 Last Admin: 04/17/22 10:20 Dose: 5 mg Documented By: Admin: 04/17/22 04:06 Dose: 5 mg Documented By: SHAWN Lactated Ringer's (Lr) 1,000 mls @ 125 mls/hr IV .Q8H ELVIN Stop: 04/17/22 19:21 Last Admin: 04/17/22 11:08 Dose: 125 mls/hr Documented By: Infusion: 04/17/22 11:08 Dose: 125 mls/hr Documented By: Admin: 04/17/22 03:48 Dose: 125 mls/hr Documented By: HALI Lorazepam 1 mg/ Syringe 1 mls @ 2 mls/min IV Q8H PRN PRN Reason: Anxiety Stop: 05/17/22 03:21 Last Admin: 04/17/22 13:35 Dose: 2 mls/min Documented By: Admin: 04/17/22 04:26 Dose: 2 mls/min Documented By: HALI Lamotrigine (Lamotrigine 100 Mg Tab) 100 mg PO BID ELVIN Stop: 05/17/22 08:59 Last Admin: 04/17/22 09:37 Dose: Not Given Documented By: URSULA Lamotrigine (Lamotrigine 25 Mg Tab) 25 mg PO BID [facility] Stop: 05/17/22 08:59 Last Admin: 04/17/22 09:37 Dose: Not Given Documented By: URSULA Propranolol HCl (Propranolol Hcl 20 Mg Tab) 20 mg PO BID [facility] Stop: 05/17/22 08:59 Last Admin: 04/17/22 09:37 Dose: Not Given Documented By: URSULA Coding Level of Care Code 16146 Inpt Consult Level 3 Diagnoses Encephalopathy G93.40
[2022-04-17] MEDS ORDERED: LORazepam 1 MG in SYRINGE 0 ML IV PRN (14:02)
--- NOTE | 2022-04-17 15:40 | Critical Care Consultation ---
Date of Consultation April 17, 2022 Assessment & Plan (1) Metabolic encephalopathy: (2) Complex partial seizure disorder: (3) Migraine: (4) Hallucinations: (5) Agitation: (6) History of drug abuse in remission: Plan Reason Critically Ill: 52-year-old male with past medical history of drug abuse, complex partial seizure disorder, migraine was admitted to hospital because of altered mental status and agitation. Patient got multiple bouts of haloperidol and benzodiazepine but again not able to get his agitation. ICU consulted for the same Neuro - [facility] ICU: --Acute metabolic encephalopathy Calcium within normal limits Sodium and glucose within normal limit Patient is moving all the extremities appropriately. I highly doubt stroke being a possibility CT head negative on 04/16/2022 Has been afebrile Calculated serum osmolality 296, measured serum osmolality 300, no osmolar gap Patient did get Geodon, haloperidol as well as Ativan QTC 418 04/16/2021 Start the patient on Precedex, get an MRI of the brain --History of complex partial seizure On lamotrigine at home Keppra started by neurology in the hospital Monitor for signs of seizures --History of migraine Cardiac - -- Tachycardia Likely from agitation Respiratory - -- No acute issues GI - -- Transaminitis with elevated CPK Could be from underlying seizures Continue to trend RENAL/LYTES - -- CKD Continue to monitor Avoid nephrotoxic medication Monitor BUNs/creatinine ENDO - ICU hypoglycemia protocol HEME - -- Normocytic anemia Continue to monitor H&H ID - -- No clear source of infection Procalcitonin negative I will give broad-spectrum antibiotics covering for manage encephalitis --Prophylaxis VTE: IPC GI: None Lines:Peripheral Diet:NPO Plan: Follow-up urine and serum osmolality Follow-up urine lites, ammonia level, procalcitonin Continue with Keppra 500 mg twice daily Start the patient on Precedex. Patient has been afebrile. Possibility of infection is low but cannot be ruled out. If MRI is negative then consider LP Follow-up RPR Give the patient dose of vancomycin, Rocephin, ampicillin and acyclovir I have personally spent 65 minutes of critical care time in the direct manag ement of this patient. This is a life/limb threatening event. This includes time spent evaluating patient, direct bedside care, chart review, placing orders, interpretation of diagnostic studies, discussion with consultants, patient, and family members, as well as other required patient management activities. This time is exclusive of all separately billable procedures, and teaching time and separate from and in addition to any other critical care service time. History of Present Illness Attending Physician: Kathy William DO History of Present Illness 52-year-old male presented to the hospital with altered mental status Past medical history: Complex partial seizure, migraine, history of drug abuse on Suboxone Patient was notable to give history. History obtained from patient's girlfriend Andrew as well as ER records At the time of examination patient was in four-point restraint. He was not answering any questions He was tachycardic. Not in respiratory distress He had gotten total of 10 mg of haloperidol, 5 g of Ativan in total He was still restless. I was not able to find any rash on the body. On talking to patient's girlfriend, patient had confusion on March 30, 2022 as well when he came to the ER. He has not been doing any illicit drugs. UDS was also negative. No recent travel history. No tick bite states patient's girlfriend could remember. No fever at home. No diarrhea. Allergies Allergy/AdvReac Type Severity Reaction Status Date / Time phenytoin Allergy Intermediate HIVES Verified 03/26/22 13:25 valproic acid Allergy Intermediate HIVES Verified 03/26/22 13:25 aspirin AdvReac Unknown BRUISING Verified 03/26/22 13:25 Home Medications Medication Instructions Recorded Confirmed Type buprenorphine 8 mg-naloxone 2 mg 1.5 tab sublingual DAILY 01/27/22 03/26/22 History sublingual tablet hydroxyzine HCl 10 mg tablet 10 mg PO BID PRN Anxiety 01/27/22 03/26/22 History ibuprofen 200 mg tablet 400 - 600 mg PO Q8 PRN Pain 01/27/22 03/26/22 History propranolol 20 mg tablet 20 mg PO BID #60 tabs 03/26/22 03/26/22 Rx sumatriptan succinate 100 mg tablet 100 mg PO DIRECTED PRN Migraine 03/26/22 03/26/22 Rx Headache #9 tabs lamotrigine 100 mg tablet 100 mg PO BID 30 days #60 tabs 04/05/22 Rx lamotrigine 25 mg tablet (Lamictal) 25 mg PO BID 30 days #60 tabs 04/09/22 Rx Patient History Medical History Complex partial seizure Migraine Tobacco use disorder (02/26/13) Surgical History History of cholecystectomy History of hand surgery Family History Father Heart disease Mother Cancer Social History Smoking Status: Unknown if ever smoked Tobacco Type: Cigarettes packs per day: 0.50; Hx Substance Use: Yes Last Used Substance Other:: unknown Preferred Language: Mongolian Ict Support Technicians Required: No Current Living Situation: Family Current Living Situation Comment: brought in by EMS, pt very disoriented and confused Feels Safe at Home: Yes Review of Systems Review of Systems: Unobtainable due to mental health condition Physical Exam Physical Exam: Constitutional: No acute distress HEENT: EOMI, pupils normal in size and reactive to light Respiratory system: Decreased air entry bilaterally, no wheeze, no rhonchi, no crackles CVS: S1-S2 positive, no murmurs or gallops, tachycardia Abdomen: Soft, nontender, nondistended, positive bowel sounds x4 Extremities: +2 pulses bilaterally radialis/ dorsalis pedis, no cyanosis, no edema Neuro: Bouts of agitation with somnolence, unable to get too much history, moving all extremities, cranial nerves II to XII grossly intact Psych: Restless and agitated G/U: Positive Estrada Skin: no rashes, warm and dry Lymphatic: no cervical or axillary lymphadenopathy Results & Data Results & Data ([facility]) Vital Signs (Past 12 Hours) Vital Signs Temp Pulse Pulse Resp BP BP Pulse Ox 04/17/22 15:00 92 H 13 123/82 95 04/17/22 14:30 62 12 89/58 L 97 04/17/22 14:01 72 12 97/62 L 93 04/17/22 14:00 73 13 85/59 L 93 04/17/22 11:00 36.6 C 04/17/22 13:00 82 13 106/69 96 04/17/22 12:01 96 H 19 118/90 98 04/17/22 11:00 80 20 134/77 95 04/17/22 10:00 81 13 114/90 93 04/17/22 09:00 83 19 129/80 93 04/17/22 08:15 96 H 14 100/66 94 04/17/22 07:15 36.7 C 117 H 22 100/67 95 O2 Del Method 04/17/22 15:00 Room Air 04/17/22 14:30 Room Air 04/17/22 14:01 Room Air 04/17/22 14:00 Room Air 04/17/22 11:00 04/17/22 13:00 Room Air 04/17/22 12:01 Room Air 04/17/22 11:00 Room Air 04/17/22 10:00 Room Air 04/17/22 09:00 Room Air 04/17/22 08:15 Room Air 04/17/22 07:15 Room Air Laboratory Results 04/17/22 07:06 04/17/22 07:06 Coding Level of Care Code Critical Care 1st 30-74 mins Diagnoses Metabolic encephalopathy G93.41 Complex partial seizure disorder G40.209 Migraine G43.909 Hallucinations R44.3 Agitation R45.1 History of drug abuse in remission F19.11 Time Spent (min) 65
[2022-04-17] MEDS ORDERED: STAT IV Infusion **Titration per Protocol STA (15:45)
[2022-04-17] MEDS: dexMEDEtomidine 200 MCG/50 ML BAG IV SCH ×4 (15:58→22:48)
[2022-04-17 16:33] LABS: Appearance Urine Clear (Clear); Bacteria Urine Automated Negative (Negative); Bilirubin Urine Negative (Negative); Blood Urine 3+ (Negative); Cast Urine Automated 0 /lpf (0-5); Color Urine Yellow; Glucose Urine UA Negative (Negative); Ketones Urine Negative (Negative); Leukocyte Esterase Urine Negative (Negative); Nitrite Urine Negative (Negative); Protein Urine 1+ (Negative); RBC Urine Automated >30 /hpf (0-4); Specific Gravity Urine 1.016 (1.000-1.030); Urobilinogen Urine Negative (Negative); pH Urine 5.5 (4.5-7.5)
[2022-04-17 17:20] LABS: Creatinine Urine Random 84.7 mg/dl; Potassium Random Urine 37.6 mmol/L
[2022-04-17] MEDS: LORazepam 2 MG in SYRINGE 0 ML IV PRN ×2 (17:37→21:00)
[2022-04-17] MEDS ORDERED: VANCOMYCIN CONSULT ACTIVE PRN (17:46)
[2022-04-17] MEDS: cefTRIAXone SODIUM 2,000 MG in DEXTROSE 5% 50 ML IV SCH (17:54)
[2022-04-17] MEDS ORDERED: VANCOMYCIN HCL 1,500 MG in SODIUM CHLORIDE 0.9% 500 ML IV ONE (18:00)
[2022-04-17] MEDS: ACYCLOVIR SOD 700 MG in DEXTROSE 5% 250 ML IV SCH (18:18)
[2022-04-17] MEDS: methylPREDNISolone 40 MG in SYRINGE 0 ML IV SCH (18:19)
[2022-04-17] MEDS: AMPICILLIN 2,000 MG in SODIUM CHLOR 0.9% AD-VAN 100 ML IV SCH ×2 (18:19→21:44)
--- NOTE | 2022-04-17 19:49 | Pharmacy Report ---
Pharmacy PK ABX Note - Date of Service April 17, 2022 - Assessment and Plan Assessment 52 year old M receiving IV vancomycin, ceftriaxone, ampicillin and acyclovir empirically for [employer] coverage. Blood cultures pending. CKD at baseline - SCr trending up 1.46-->1.6 (baseline ~1.5). Day # 1 of antimicrobial therapy. Plan Vancomycin * Loading dose: 1500 mg IV x 1 * Maintenance dose: 1000 mg IV every 18 hours * Regimen is predicted to achieve target AUC/BEV of 400-600 mg/L.hr Pharmacy will continue to follow and will adjust dose/frequency as necessary. Thank you. Pharmacy has transitioned to AUC monitoring for vancomycin. AUC/BEV is the preferred PK/PD target and is associated with decreased risk of nephrotoxicity compared to traditional trough targets.
[2022-04-17] MEDS ORDERED: GADOBUTROL 65ML VIAL IV ONE (20:18)
--- NOTE | 2022-04-17 20:38 | Magnetic Resonance Report ---
MR brain seizure wo/w con CLINICAL HISTORY: ? Seizure causing AMS TECHNIQUE: Multiplanar and multisequence MR images of the brain were obtained prior to and following administration of gadolinium contrast. Comparison: Comparison is made to MRI brain 12/14/2020 FINDINGS: No abnormal restricted diffusion is identified. Foci of T2 and FLAIR hyperintensity are noted in the paraventricular areas consistent with chronic small vessel ischemic disease. The ventricular system i s normal in appearance. No mass or abnormal enhancement is seen. There is no mass effect or midline s hift. There is no evidence of acute intraparenchymal hemorrhage. No extra axial fluid collections are seen. The corpus callosum, pituitary gland, and cerebellar tonsils appear grossly unremarkable. High -resolution images of the temporal lobes do not demonstrate any signal abnormality. Incidental note i s made of a left posterior fossa arachnoid cyst. This is unchanged from Flow voids of the major intracranial arterial vessels are identified. The imaged portions of the para nasal sinuses, mastoid air cells, and orbits are unremarkable. IMPRESSION: No acute abnormality. In particular, no edema in the temporal lobes bilaterally in this postictal pat ient. ACT 112: Negative or not required by law. Electronically signed by: Romero Minaya M.D. 04/17/2022 8:35 PM
--- NOTE | 2022-04-17 21:07 | XRay Report ---
XR chest 1V portable CLINICAL HISTORY: SOB TECHNIQUE: Single frontal radiograph of the chest was obtained. Comparison: Comparison is made to rib series 09/04/2021 FINDINGS: No lines and tubes are seen. The cardiomediastinal silhouette is normal. The lungs are clear. No evid ence of pleural effusion or pneumothorax. IMPRESSION: No acute chest disease. ACT 112: Negative or not required by law. Electronically signed by: Romero Minaya M.D. 04/17/2022 9:04 PM
[2022-04-17] MEDS ORDERED: levETIRAcetam 500 MG in 0.9 % SODIUM CHLORIDE 100 ML IV SCH (22:45)
[2022-04-18] MEDS: ACYCLOVIR SOD 700 MG in DEXTROSE 5% 250 ML IV SCH ×2 (01:10→09:24)
[2022-04-18] MEDS: AMPICILLIN 2,000 MG in SODIUM CHLOR 0.9% AD-VAN 100 ML IV SCH ×6 (01:10→21:05)
[2022-04-18] MEDS: LORazepam 2 MG in SYRINGE 0 ML IV PRN ×2 (02:21→11:30)
[2022-04-18] MEDS: dexMEDEtomidine 200 MCG/50 ML BAG IV SCH (03:50)
[2022-04-18] MEDS ORDERED: VANCOMYCIN HCL 1,000 MG in SODIUM CHLORIDE 0.9% 250 ML IV SCH (04:00)
[2022-04-18 05:14] LABS: Hematocrit (blood only) 30.1 % (40.1-51.0); Hemoglobin 10.4 g/dl (14.0-18.0); Platelet Count 111 K/uL (130-400); White Blood Count 3.71 K/ul (4.8-10.8)
[2022-04-18 05:37] LABS: Mean Corpuscular Hemoglobin 30.8 pg (25.0-34.0); Mean Corpuscular Hgb Conc 34.6 g/dL (32.0-36.0); Mean Corpuscular Volume 89.1 fL (80.0-100.0); RDW Coefficient of Variation 13.3 % (11.5-14.5); RDW Standard Deviation 43.8 fL (36.4-46.3); Red Blood Count 3.38 M/uL (4.63-6.08)
[2022-04-18] MEDS: cefTRIAXone SODIUM 2,000 MG in DEXTROSE 5% 50 ML IV SCH ×2 (05:39→17:01)
[2022-04-18 05:51] LABS: BUN Creatinine Ratio 28.1 (10-20); Calcium 9.3 mg/dl (8.5-10.1); Creatinine Clr Calc Pharmacy 78.3 ml/min; Est GFR (African American) 85.2 ml/min; Est GFR (Non-African American) 73.5 ml/min; Potassium 4.3 mmol/L (3.5-5.1)
[2022-04-18] MEDS: MAGNESIUM SULFATE / D5W 1 GM/100 ML BAG IV SCH ×5 (06:29→23:52)
--- NOTE | 2022-04-18 07:17 | Hospitalist Progress Note ---
Date of Service April 18, 2022 Assessment & Plan (1) Metabolic encephalopathy: Plan: 52-year-old male past medical history significant for depression, migraine, complex partial seizures follows with neurology admitted for altered mental status/psychosis/metabolic encephalopathy. Metabolic encephalopathy: Presented via EMS due to altered mental status per partner, with agitation in ER and erratic odd behaviors. Admission alcohol level negative, and urine tox screen is negative. Salicylate and Tylenol levels negative. Urinalysis, chest x-ray without evidence of infection. No fevers or leukocytosis. Procalcitonin normal. UCx no growth @ 24 hours. BCx POSITIVE for Strep species, and BioFire testing reveals the organism is not GAS/GBS/S. pneumonia. Broad-spectrum coverage (vancomycin, ceftriaxone, ampicillin, acyclovir) started 04/17 to cover for meningoencephalitis for now. LP studies pending. Lyme and RPR negative. COVID-19 negative. TSH normal. Ammonia level normal. Creatinine down to 1.2. Normal urine and serum osmolality without osmolar gap. CT head without evidence of acute intracranial findings. Brain MRI with seizure protocol without evidence of temporal lobe edema. Neurology consulted and appreciate recommendations: Keppra load 1500mg given, and dose increased to 750mg twice daily due to improvement in renal function. Psychiatry consulted and appreciate recommendations: Suspected acute encephalopathy/agitated delirium. No evidence of NMS or serotonin syndrome, trend CK. Patient will require one-to-one due to 302 warrant and risk of elopement. Precedex d/c'ed due to bradycardia. Prolonged QTc ~480 so avoid agents to prolong QT if possible. Haldol dosing prn decreased to 2.5mg. (2) History of drug abuse in remission: Plan: History of drug use in remission. Patient is on Suboxone and per patient's partner he has not missed any doses or taking extra doses. Per partner, he will sometimes have an alcoholic beverage when they go out to dinner or with friends, however not with any regularity. (3) Complex partial seizure disorder: Plan: History of. Unclear if patient is having seizure activity, however MRI without evidence of seizure. Keppra load given as above with twice daily Keppra while admitted. Neurology to follow. (4) CKD (chronic kidney disease): Plan: CKD with a baseline creatinine around 1.5, though has had a large range over the last several months. Avoid nephrotoxins and renally dose medications. Creatinine 1.2 today. (5) Migraine: Plan: History of migraine on Imitrex as needed. (6) Anemia: Plan: History of with hemoglobin 1012 over the last several years. Likely anemia of chronic disease. Plan Full code N.p.o. Low risk for DVT; consider initiation tomorrow ICU; will continue to follow for eventual downgrade Admission and Anticipated Discharge Date Admission Date: April 17, 2022 Subjective This morning slightly more alert today, does answer some simple questions appropriately but still with periods of confusion and agitation. No acute events overnight. Review of Systems Review of Systems: Unobtainable due to cognitive status Physical Exam Constitutional: + ill appearing, + thin and + disheveled Eyes: PERRL, conjunctivae normal, anicteric sclerae Respiratory: normal respiratory effort, lungs clear to auscultation Cardiovascular: RRR, no murmur, no edema Gastrointestinal (Abdomen): normal bowel sounds, soft, nontender, no hepatosplenomegaly Musculoskeletal: no cyanosis or clubbing, extremities motor strength 5/5 Skin: no rashes, warm and dry Neurologic: restless, sometimes will make eye contact and answer one word questions but other times will answer questions inappropriately Results & Data Results & Data ([facility]) Vital Signs (Past 12 Hours) Vital Signs Temp Pulse Resp BP Pulse Ox O2 Del Method 04/18/22 07:10 55 L 04/18/22 06:30 55 L 12 99/60 L 95 Room Air 04/18/22 06:00 52 L 14 107/64 93 04/18/22 05:30 64 13 93 04/18/22 05:00 55 L 15 112/59 L 95 Room Air 04/18/22 04:30 61 13 99/65 L 96 04/18/22 04:00 36.2 C L 72 14 104/69 92 04/18/22 03:30 58 L 12 111/61 99 04/18/22 03:00 63 12 82/56 L 95 Room Air 04/18/22 02:30 60 12 105/57 L 97 04/18/22 00:15 55 L 04/18/22 02:00 65 13 108/72 99 04/18/22 02:00 108/72 04/18/22 01:30 70 12 103/64 96 04/18/22 01:30 103/64 11/16/22 01:00 62 14 117/71 96 04/18/22 01:00 117/71 04/18/22 00:30 64 12 114/69 95 04/18/22 00:30 114/69 04/18/22 00:00 58 L 15 117/71 96 04/17/22 23:30 55 L 15 140/75 98 04/17/22 23:01 77 17 86 L 04/17/22 23:00 36.5 C 67 18 125/79 90 04/17/22 22:30 72 16 130/88 93 04/17/22 22:00 53 L 13 105/66 96 04/17/22 21:30 53 L 13 100/68 95 04/17/22 21:00 57 L 13 117/69 95 04/17/22 20:52 56 L 11 L 93 04/17/22 20:42 84 10 L 121/72 04/17/22 19:38 104/68 04/17/22 19:38 70 13 95 04/17/22 19:30 71 11 L 87/65 L 95 04/17/22 19:30 Room Air PG Care Time/CCT Total # of Minutes Spent Total Time Spent with Patient: Total time spent is greater than 50% in coordination of care (as documented) at patient's floor/unit and/or counseling patient: Coding Level of Care Code 76802 Subseq Hosp Care Lvl 3 Diagnoses Metabolic encephalopathy G93.41 History of drug abuse in remission F19.11 Complex partial seizure disorder G40.209 CKD (chronic kidney disease) N18.9 Migraine G43.909 Anemia D64.9
[2022-04-18 08:33] LABS: A calco-baum cmplx NotReported Not Detected (NotDetected); Bact fragilis Not Reported Not Detected (NotDetected); C auris Not Reported Not Detected (NotDetected); Calbicans Not Reported Not Detected (NotDetected); Candida glabrata Not Reported Not Detected (NotDetected); Candida krusei Not Reported Not Detected (NotDetected); Cneoformans/gatti Not Reported Not Detected (NotDetected); Cparapsilosis Not Reported Not Detected (NotDetected); Ctropicalis Not Reported Not Detected (NotDetected); E cloacae compx Not Reported Not Detected (NotDetected); Efaecalis Not Reported Not Detected (NotDetected); Efaecium Not Reported Not Detected (NotDetected); Enterobacterales Not Reported Not Detected (NotDetected); Escherichia coli Not Reported Not Detected (NotDetected); H influenzae Not Reported Not Detected (NotDetected); K aerogenes Not Reported Not Detected (NotDetected); Koxytoca Not Reported Not Detected (NotDetected); Kpneumoniae grp Not Reported Not Detected (NotDetected); Lmonocyt Not Reported Not Detected (NotDetected); N meningitidis Not Reported Not Detected (NotDetected); P aeruginosa Not Reported Not Detected (NotDetected); Proteus spp Not Reported Not Detected (NotDetected); Salmonella spp Not Reported Not Detected (NotDetected); Smarcescens Not Reported Not Detected (NotDetected); Staph lugdunensis Not Reported Not Detected (NotDetected); Staph spp. Not Reported Not Detected (NotDetected); Staphaureus Not Reported Not Detected (NotDetected); Staphepi Not Reported Not Detected (NotDetected); Stenmaltophilia Not Reported Not Detected (NotDetected); Strep agal(GrpB) Not Reported Not Detected (NotDetected); Strep pneum Not Reported Not Detected (NotDetected); Strep pyog (GrpA) Not Reported Not Detected (NotDetected); Strep spp Not Reported DETECTED (NotDetected)
[2022-04-18] MEDS: methylPREDNISolone 40 MG in SYRINGE 0 ML IV SCH (08:38)
[2022-04-18 08:48] LABS: Magnesium 1.8 mg/dl (1.7-2.4)
[2022-04-18] MEDS ORDERED: THIAMINE HCL 100 MG in SYRINGE 9 ML IV SCH (09:00)
--- NOTE | 2022-04-18 09:06 | Critical Care Progress Note ---
Date of Service April 18, 2022 Assessment & Plan (1) Metabolic encephalopathy: (2) Complex partial seizure disorder: (3) Migraine: (4) Hallucinations: (5) Agitation: (6) History of drug abuse in remission: Plan Reason Critically Ill: 52-year-old male with past medical history of drug abuse, complex partial seizure disorder, migraine was admitted to hospital because of altered mental status and agitation. Patient got multiple bouts of haloperidol and benzodiazepine but again not able to get his agitation. ICU consulted for the same Neuro - [facility] ICU: --Acute metabolic encephalopathy Calcium within normal limits Sodium and glucose within normal limit Patient is moving all the extremities appropriately. I highly doubt stroke being a possibility CT head negative on 04/16/2022, MRI brain 04/17/2022 negative Has been afebrile Calculated serum osmolality 296, measured serum osmolality 300, no osmolar gap Tox screen was negative, ethanol level was negative DTs could be a possibility but low in differential Patient did get Geodon, haloperidol as well as Ativan QTC 418 04/16/2021 --> 481 04/18/22 --History of complex partial seizure On lamotrigine at home Heladio started by neurology in the hospital Monitor for signs of seizures --History of migraine Cardiac - -- Bradycardia Likely from Precedex Continue to monitor --Prolonged QTC Try to avoid any other QT prolonging medication Respiratory - -- No acute issues GI - -- Transaminitis with elevated CPK Could be from underlying seizures Continue to trend RENAL/LYTES - -- CKD Continue to monitor Avoid nephrotoxic medication Monitor BUNs/creatinine -- Urinary retention Continue with Estrada ENDO - ICU hypoglycemia protocol HEME - -- Normocytic anemia Continue to monitor H&H --Thrombocytopenia Has been chronic Continue to monitor ID - -- No clear source of infection Procalcitonin negative I will give broad-spectrum antibiotics covering for manage encephalitis --Prophylaxis VTE: IPC GI: None Lines:Peripheral, Estrada Diet:NPO Plan: In/out: +1900, urine output 2355 Has been afebrile MRI of the brain was negative Chest x-ray does not show any signs of infection Patient was bradycardic in the morning, likely from Precedex which has been on hold. Patient got total of 5 mg of haloperidol in the last 12 hours and 4 mg of Ativan. Given that he is still confused and bouts of agitation. LP will be pursued. Given patient is not able to consent and the procedure is deemed to be necessary to find out the etiology of his altered mental status we will go ahead with the procedure. Case was discussed with Dr. Gómez but Follow-up RPR Continue with Rocephin and vancomycin I have personally spent 38 minutes of critical care time in the direct management of this patient. This is a life/limb threatening event. This includes time spent evaluating patient, direct bedside care, chart review, placing orders, interpretation of diagnostic studies, discussion with consultants, patient, and family members, as well as other required patient management activities. This time is exclusive of all separately billable procedures, and teaching time and separate from and in addition to any other critical care service time. Admission and Anticipated Discharge Date Admission Date: April 17, 2022 Subjective Patient seen and examined at bedside. No acute distress Patient was bradycardic. Precedex has been off since around 4 AM. Map was in the low to mid 60s. Patient was in soft restraints. He was able to say his name but not able to get more history from him. Has been afebrile. Review of Systems Review of Systems: Unobtainable due to mental health condition and U nobtainable due to cognitive status Physical Exam Physical Exam: Constitutional: No acute distress HEENT: EOMI, pupils normal in size and reactive to light Respiratory system: Decreased air entry bilaterally, no wheeze, no rhonchi, positive crackles bilateral lower lobes CVS: S1-S2 positive, no murmurs or gallops, bradycardia Abdomen: Soft, nontender, nondistended, positive bowel sounds x4 Extremities: +2 pulses bilaterally radialis/ dorsalis pedis, no cyanosis, no edema Neuro:Moving all extremities, cranial nerves II to XII grossly intact, oriented to self Psych: Somnolent G/U: Positive Estrada Skin: no rashes, warm and dry Lymphatic: no cervical or axillary lymphadenopathy Results & Data Results & Data ([facility]) Vital Signs (Past 12 Hours) Vital Signs Temp Pulse Resp BP Pulse Ox O2 Del Method 04/18/22 07:30 53 L 12 94/57 L 95 Room Air 04/18/22 07:01 54 L 13 116/69 93 Room Air 04/18/22 07:10 55 L 04/18/22 06:30 55 L 12 99/60 L 95 Room Air 04/18/22 06:00 52 L 14 107/64 93 04/18/22 05:30 64 13 93 04/18/22 05:00 55 L 15 112/59 L 95 Room Air 04/18/22 04:30 61 13 99/65 L 96 04/18/22 04:00 36.2 C L 72 14 104/69 92 04/18/22 03:30 58 L 12 111/61 99 04/18/22 03:00 63 12 82/56 L 95 Room Air 04/18/22 02:30 60 12 105/57 L 97 04/18/22 00:15 55 L 04/18/22 02:00 65 13 108/72 99 04/18/22 02:00 108/72 04/18/22 01:30 70 12 103/64 96 04/18/22 01:30 103/64 04/18/22 01:00 62 14 117/71 96 04/18/22 01:00 117/71 04/18/22 00:30 64 12 114/69 95 04/18/22 00:30 114/69 04/18/22 00:00 58 L 15 117/71 96 04/17/22 23:30 55 L 15 140/75 98 04/17/22 23:01 77 17 86 L 04/17/22 23:00 36.5 C 67 18 125/79 90 04/17/22 22:30 72 16 130/88 93 04/17/22 22:00 53 L 13 105/66 96 04/17/22 21:30 53 L 13 100/68 95 04/17/22 21:00 57 L 13 117/69 95 Laboratory Results 04/18/22 04:41 04/18/22 04:41 Coding Level of Care Code Critical Care 1st 30-74 mins Diagnoses Metabolic encephalopathy G93.41 Complex partial seizure disorder G40.209 Migraine G43.909 Hallucinations R44.3 Agitation R45.1 History of drug abuse in remission F19.11 Time Spent (min) 38
[2022-04-18 09:14] LABS: Streptococcus spp DETECTED (NotDetected)
[2022-04-18] MEDS: D5W AND LACTATED RINGERS 1,000 ML IV SCH ×2 (09:19→20:05)
[2022-04-18] MEDS: lamoTRIgine 100 MG TAB PO SCH ×2 (09:56→20:00)
[2022-04-18] MEDS: lamoTRIgine 25 MG TAB PO SCH ×2 (09:57→20:00)
[2022-04-18] MEDS: BUPRENORPHINE/NALOXONE 8/2 MG TAB SL SCH (10:11)
--- NOTE | 2022-04-18 10:17 | Neurology Progress Note ---
Date of Service April 18, 2022 Assessment & Plan (1) Encephalopathy: (2) Complex partial seizure disorder: Plan Persistent encephalopathy. Prolonged postictal confusion? He did have an elevated CK, trending down, and has had a relatively low lamotrigine level previously. Encephalitis? Metabolic or toxic? History of IV drug abuse although toxicology screen unremarkable. No evidence of acute or subacute stroke or other process on recent brain MRI. Notably, there was no evidence of meningoencephalitis on his recent MRI. Agree with lumbar puncture under fluoroscopy today to further exclude meningoencephalitis. Continue with broad-spectrum antimicrobial coverage inclu ding acyclovir for the time being. We will continue to attempt EEG. Increase dosage of levetiracetam to 750 mg IV every 12 hours. May consider adding Vimpat IV as an adjunctive medication. Admission and Anticipated Discharge Date Admission Date: April 18, 2022 Subjective Follow-up for encephalopathy, seizure disorder Patient remains considerably confused, agitated, will open eyes to voice, does not follow simple commands. Exhibits intermittent generalized tremors and associated myoclonic jerking, more so when stimulated. EEG has not been completed due to persistent agitation. Independently reviewed the recent gadolinium-enhanced brain MRI, seizure protocol, completed yesterday. The study was fairly unremarkable. No evidence of acute or subacute stroke. No imaging evidence of seizure focus. No mesial temporal sclerosis. No hemorrhage. There was minimal chronic small vessel ischemic disease. Patient is scheduled for lumbar puncture under fluoroscopy today to rule out meningoencephalitis. He is on broad-spectrum antimicrobial coverage including acyclovir. Patient continues with levetiracetam, was given a 1500 mg IV loading dose, now on 500 mg IV every 12 hours. I did consider giving him Depakote IV although he does have an allergy to valproic acid. There is also an allergy noted to phenytoin. Review of Systems Review of Systems: Unobtainable due to cognitive status and Unobtainable due to reduced consciousness Results & Data ([facility]) Vital Signs (Past 12 Hours) Vital Signs Temp Pulse Resp BP Pulse Ox O2 Del Method 04/18/22 07:30 53 L 12 94/57 L 95 Room Air 04/18/22 07:01 54 L 13 116/69 93 Room Air 04/18/22 07:10 55 L 04/18/22 06:30 55 L 12 99/60 L 95 Room Air 04/18/22 06:00 52 L 14 107/64 93 04/18/22 05:30 64 13 93 04/18/22 05:00 55 L 15 112/59 L 95 Room Air 04/18/22 04:30 61 13 99/65 L 96 04/18/22 04:00 36.2 C L 72 14 104/69 92 04/18/22 03:30 58 L 12 111/61 99 04/18/22 03:00 63 12 82/56 L 95 Room Air 04/18/22 02:30 60 12 105/57 L 97 04/18/22 00:15 55 L 04/18/22 02:00 65 13 108/72 99 04/18/22 02:00 108/72 04/18/22 01:30 70 12 103/64 96 04/18/22 01:30 103/64 04/18/22 01:00 62 14 117/71 96 04/18/22 01:00 117/71 04/18/22 00:30 64 12 114/69 95 04/18/22 00:30 114/69 04/18/22 00:00 58 L 15 117/71 96 04/17/22 23:30 55 L 15 140/75 98 04/17/22 23:01 77 17 86 L 04/17/22 23:00 36.5 C 67 18 125/79 90 04/17/22 22:30 72 16 130/88 93 Laboratory Results WBC 3.71, hemoglobin 10.4, hematocrit 30.1, platelet count 111, sodium 138, potassium 4.3, BUN 32, creatinine 1.14, glucose 125, calcium 1.8, total CK9 98, positive serologic Streptococcus species PCR noted. Diagnostic Findings MRI and EEG are as described above. Exam (Neuro) Neurologic: Oriented to:: negative Person, Place or Time Memory: negative Short Term Intact or Remote Intact Attention: negative Span Intact or Aline ntration Intact Cranial Nerves: Normal II, III, IV, and VII Motor Strength: Normal Lower Extremities and Normal Upper Extremities Muscle Bulk/Involuntary Movements: negative No Involuntary Movements (Exhibits intermittent generalized tremor and associated myoclonic jerking of the limbs when stimulated.) Details: Withdrawals both lower limbs equally to plantar stimulation. Symmetric grasp function noted. (Patient currently in three-point soft restraints.) Coding Level of Care Code 58718 Subseq Hosp Care Lvl 2 Diagnoses Encephalopathy G93.40 Complex partial seizure disorder G40.209
[2022-04-18] MEDS ORDERED: HALOPERIDOL LACTATE 5 MG/ML 1 ML VIAL IV PRN (10:23)
--- NOTE | 2022-04-18 10:44 | Pharmacy Report ---
Pharmacy Vanc AUC Short Note - Date of Service April 18, 2022 - Assessment & Plan Assessment * 52 year old M receiving VANCOMYCIN, CEFTRIAXONE, AMPICILLIN, ACYCLOVIR for treatment of possible bacterial/viral meningitis/encephalitis. * Pertinent microbiologic data includes: Both bottles of one set of BLCXs growing GPC in chains. BioFire testing reveals the organism is strep species, however not GAS, not GBS, and not strep pneumonia (possibly viridans strep?) * LP has not yet been performed, however there are plans for this today * Procal negative, afebrile, mild leukopenia noted today * Renal fxn improving Plan Vancomycin * AUC/BEV is the preferred PK/PD target for vancomycin * AUC guided dosing is effective and associated with decreased risk of nephrotoxicity compared to traditional trough targets * Will change maint dose to 750mg IV Q 12 hrs given change in renal fxn. This dose is anticipated to achieve target AUC/BEV of 400-600 mg/L.hr and may be associated with a 11 % risk of nephrotoxicity * Trough level will be checked with 2rd dose of this new regimen Pharmacy will continue to follow and will adjust dose/frequency as necessary. Thank you.
--- NOTE | 2022-04-18 10:51 | Psychiatric Progress Note ---
Date of Service April 18, 2022 Impression / Recommendations Impression 52 yo with history of depression, seizures and substance use (on maintenance suboxone) presenting with acute mental status changes, agitation and visual hallucinations. Presentation last month for alcohol intoxication and odd behaviors and refused UDS at that time. Diagnostically consistent with acute encephalopathy, agitated delirium. Unclear if substance-induced vs withdrawal could be a component including from alcohol but UDS negative. Sometimes can see such presentation with PCP use which does not always show up consistently in UDS. QTc normal at this time. No signs to suggest NMS nor serontonin syndrome at this point but would continue to trend CK and monitor vitals closely. 04/18/22: Slightly better at conversing briefly today. Remains delirious with agitation/restlessness. No signs of serotonin syndrome (unclear how much he was using Imitrex prior to admission but no other medications to raise significant concern for this) nor NMS, CK downtrending, no clonus on ankle/foot testing via brief exam which is further reassuring. Would continue with medical workup for cause of delirium. (1) Encephalopathy: Plan -Ativan 1-2 mg q2h prn (try not to exceed 12mg max per day) as preference for agitation -If ativan unsuccessful or causing paradoxical increase in agitation would use: thorazine 50mg IM q6h prn up to max dose of 200mg per 24 hours OR haldol 2.5mg to 5 mg IM or IV q4h prn (do not exceed 10mg in 24 hours) also an option. Would use this only if necessary as can lower seizure threshold and potential for QTc prolongation -Alternative option would be valproic acid IV, would defer to neurology on dosing but can also help with agitation, but has allergy of hives from valproic so would attempt to avoid in favor of choices above. -Continue 1-1 for elopement risk as on 302 warrant and with agitation Interval History Identifying Information 52 yo man with history of depression and seizures admitted for confusion. Psychiatry consulted for diagnostic and medication recommendations. Chief Complaint "My old friend's number with the pencil sharpener". Subjective Subjective Patient was seen & assessed and interval progress reviewed. Required two doses of haldol 2.5mg IV as well as ativan IV prn and Precedex for agitation. This morning slightly more responsive to his name, opens his eyes and makes better eye contact. Doesn't know where he is or the year, guesses 2000. Tells me a non- linear concern about an old high school friend and a pencil sharpened down to stub telling me "that's why I'm here". Denies any recent alcohol, PCP or other substance use. Says he has been having migraines and using Imitrex but can't tell me how often other than "a lot" but unclear if he fully understands the questions. Continues to be easily distracted and restless. Physical Exam Psychiatric Orientation: alert and oriented to person; + not oriented to place and + not oriented to time Apperance: + disheveled Eye Contact: + fair eye contact Motor Behavior: + psychomotor agitation; n EPS and n tremor Speech: + abnormal rate/rhythm/volume of speech (brief ) Affect: + flat affect Mood: + irritable mood Thought Process: + looseness of associations Thought Content: + preoccupation Cognition: + recent memory not intact, + attention not intact and + language not intact Insight: + severely impaired insight Judgement: + severely impaired judgement Vital Signs (Past 24 Hours) Last Vital Signs Temp 36.5 C 04/18/22 07:00 Pulse 60 04/18/22 09:30 Resp 18 04/18/22 09:30 BP 99/58 L 04/18/22 09:30 Pulse Ox 97 04/18/22 09:30 O2 Del Method 04/18/22 09:30 Results & Data ([facility]) Laboratory Results Laboratory Results - last 24 hr 04/17/22 04/17/22 04/17/22 15:54 15:54 15:54 WBC RBC Hgb Hct MCV MCH MCHC RDW Std Deviation RDW Coeff of Roland Plt Count MPV ESR Sodium Potassium Chloride Carbon Dioxide Anion Gap BUN Creatinine Est Cr Clr Drug Dosing Est GFR ( Amer) Est GFR (Non-Af Amer) BUN/Creatinine Ratio Glucose Osmolality 300 Calcium Phosphorus Magnesium Ammonia 27.0 Total Creatine Kinase C-Reactive Protein Procalcitonin < 0.05 Urine Color Urine Appearance Urine pH Ur Specific [place] Urine Protein Urine Glucose (UA) Urine Ketones Urine Blood Urine Nitrite Urine Bilirubin Urine Urobilinogen Ur Leukocyte Esterase Urine WBC (Auto) Urine RBC (Auto) U Hyaline Cast (Auto) U Epithel Cells (Auto) Urine Bacteria (Auto) Urine Osmolality Ur Random Creatinine Ur Random Sodium Ur Random Potassium Ur Random Chloride RPR Streptococcus sp PCR Bld Cult ID Panel PCR 04/17/22 04/17/22 04/17/22 15:54 16:05 16:05 WBC RBC Hgb Hct MCV MCH MCHC RDW Std Deviation RDW Coeff of Roland Plt Count MPV ESR Sodium Potassium Chloride Carbon Dioxide Anion Gap BUN Creatinine Est Cr Clr Drug Dosing Est GFR ( Amer) Est GFR (Non-Af Amer) BUN/Creatinine Ratio Glucose Osmolality Calcium Phosphorus Magnesium Ammonia Total Creatine Kinase C-Reactive Protein Procalcitonin Urine Color Yellow Urine Appearance Clear Urine pH 5.5 Ur Specific [place] 1.016 Urine Protein 1+ H Urine Glucose (UA) Negative Urine Ketones Negative Urine Blood 3+ H Urine Nitrite Negative Urine Bilirubin Negative Urine Urobilinogen Negative Ur Leukocyte Esterase Negative Urine WBC (Auto) 1-5 Urine RBC (Auto) >30 H U Hyaline Cast (Auto) 0 U Epithel Cells (Auto) 5-10 H Urine Bacteria (Auto) Negative Urine Osmolality 568 Ur Random Creatinine Ur Random Sodium Ur Random Potassium Ur Random Chloride RPR Nonreactive Streptococcus sp PCR Bld Cult ID Panel PCR 04/17/22 04/17/22 04/18/22 16:05 16:09 04:41 WBC RBC Hgb Hct MCV MCH MCHC RDW Std Deviation RDW Coeff of Roland Plt Count MPV ESR Sodium 138 Potassium 4.3 Chloride 108 H Carbon Dioxide 22 Anion Gap 8 BUN 32 H Creatinine 1.14 D Est Cr Clr Drug Dosing 78.3 Est GFR ( Amer) 85.2 Est GFR (Non-Af Amer) 73.5 BUN/Creatinine Ratio 28.1 H Glucose 125 H Osmolality Calcium 9.3 Phosphorus Magnesium Ammonia Total Creatine Kinase 998 H C-Reactive Protein Procalcitonin Urine Color Urine Appearance Urine pH Ur Specific [place] Urine Protein Urine Glucose (UA) Urine Ketones Urine Blood Urine Nitrite Urine Bilirubin Urine Urobilinogen Ur Leukocyte Esterase Urine WBC (Auto) Urine RBC (Auto) U Hyaline Cast (Auto) U Epithel Cells (Auto) Urine Bacteria (Auto) Urine Osmolality Ur Random Creatinine 84.7 Ur Random Sodium 91 Ur Random Potassium 37.6 Ur Random Chloride 70 RPR Streptococcus sp PCR DETECTED A Bld Cult ID Panel PCR See PCR Comment 04/18/22 04/18/22 04/18/22 04:41 04:41 04:41 WBC 3.71 L RBC 3.38 L Hgb 10.4 L Hct 30.1 L MCV 89.1 MCH 30.8 MCHC 34.6 RDW Std Deviation 43.8 RDW Coeff of Roland 13.3 Plt Count 111 L MPV 10.0 ESR 8 Sodium Potassium Chloride Carbon Dioxide Anion Gap BUN Creatinine Est Cr Clr Drug Dosing Est GFR ( Amer) Est GFR (Non-Af Amer) BUN/Creatinine Ratio Glucose Osmolality Calcium Phosphorus 5.0 H D Magnesium 1.8 Ammonia Total Creatine Kinase C-Reactive Protein Procalcitonin Urine Color Urine Appearance Urine pH Ur Specific [place] Urine Protein Urine Glucose (UA) Urine Ketones Urine Blood Urine Nitrite Urine Bilirubin Urine Urobilinogen Ur Leukocyte Esterase Urine WBC (Auto) Urine RBC (Auto) U Hyaline Cast (Auto) U Epithel Cells (Auto) Urine Bacteria (Auto) Urine Osmolality Ur Random Creatinine Ur Random Sodium Ur Random Potassium Ur Random Chloride RPR Streptococcus sp PCR Bld Cult ID Panel PCR 04/18/22 04:41 WBC RBC Hgb Hct MCV MCH MCHC RDW Std Deviation RDW Coeff of Roland Plt Count MPV ESR Sodium Potassium Chloride Carbon Dioxide Anion Gap BUN Creatinine Est Cr Clr Drug Dosing Est GFR ( Amer) Est GFR (Non-Af Amer) BUN/Creatinine Ratio Glucose Osmolality Calcium Phosphorus Magnesium Ammonia Total Creatine Kinase C-Reactive Protein 1.22 H Procalcitonin Urine Color Urine Appearance Urine pH Ur Specific [place] Urine Protein Urine Glucose (UA) Urine Ketones Urine Blood Urine Nitrite Urine Bilirubin Urine Urobilinogen Ur Leukocyte Esterase Urine WBC (Auto) Urine RBC (Auto) U Hyaline Cast (Auto) U Epithel Cells (Auto) Urine Bacteria (Auto) Urine Osmolality Ur Random Creatinine Ur Random Sodium Ur Random Potassium Ur Random Chloride RPR Streptococcus sp PCR Bld Cult ID Panel PCR Current Inpatient Medications Current Inpatient Medications: Current Inpatient Medications Buprenorphine/Naloxone (Buprenorphine/Naloxone 8/2 Mg Tab) 1.5 tab SL DAILY [facility] Stop: 05/17/22 08:59 Last Admin: 04/18/22 10:11 Dose: 1.5 tab Haloperidol Lactate (Haloperidol Lactate 5 Mg/Ml 1 Ml Vial) 2.5 mg IV Q8H PRN PRN Reason: Agitation Call provider 1st* Stop: 05/18/22 10:22 Dexmedetomidine/Sodium Chloride (Precedex) 200 mcg in 50 mls @ 0 mls/hr IV .Q0M [facility]; Protocol Stop: 04/21/22 15:44 Last Titration: 04/18/22 07:05 Dose: 0 mcg/kg/hr, 0 mls/hr Lorazepam 2 mg/ Syringe 2 mls @ 2 mls/min IV Q2H PRN PRN Reason: Anxiety Stop: 05/17/22 14:01 Last Admin: 04/18/22 02:21 Dose: 2 mls/min Ceftriaxone Sodium 2,000 mg/ (Dextrose) 70 mls @ 140 mls/hr IV Q12H [facility] Stop: 04/27/22 17:59 Last Infusion: 04/18/22 06:22 Dose: Infused Ampicillin Sodium 2,000 mg/ (Sodium Chloride) 100 mls @ 200 mls/hr IV Q4H [facility]; Protocol Stop: 04/19/22 17:59 Last Infusion: 04/18/22 10:08 Dose: Infused Acyclovir Sodium 700 mg/ (Dextrose) 264 mls @ 250 mls/hr IV Q8H [facility] Stop: 04/19/22 10:00 Last Infusion: 04/18/22 10:30 Dose: Infused Methylprednisolone 40 mg/ (Syringe) 0.64 mls @ 1.5 mls/min IV DAILY [facility] Stop: 05/17/22 17:59 Last Admin: 04/18/22 08:38 Dose: 1.5 mls/min Magnesium Sulfate/Dextrose (Magnesium Sulfate / D5w) 1 gm in 100 mls @ 50 mls/hr IV Q2H [facility] Stop: 04/18/22 12:14 Last Admin: 04/18/22 09:55 Dose: 50 mls/hr Vancomycin HCl 750 mg/ Sodium (Chloride) 265 mls @ 200 mls/hr IV Q12H [facility]; Protocol Stop: 04/28/22 15:59 Dextrose/Lactated Ringer's (D5w And Lactated Ringers) 1,000 mls @ 100 mls/hr IV .Q10H [facility] Stop: 04/19/22 05:14 Last Admin: 04/18/22 09:19 Dose: 100 mls/hr Levetiracetam 750 mg/ Sodium (Chloride) 107.5 mls @ 420 mls/hr IV Q12H [facility] Stop: 05/17/22 10:29 Thiamine HCl 400 mg/ Sodium (Chloride) 54 mls @ 210 mls/hr IV ONE ONE Stop: 04/18/22 11:15 Thiamine HCl 500 mg/ Sodium (Chloride) 55 mls @ 210 mls/hr IV Q8H [facility] Stop: 05/18/22 17:59 Lamotrigine (Lamotrigine 100 Mg Tab) 100 mg PO BID [facility] Stop: 05/17/22 08:59 Last Admin: 04/18/22 09:56 Dose: Not Given Lamotrigine (Lamotrigine 25 Mg Tab) 25 mg PO BID [facility] Stop: 05/17/22 08:59 Last Admin: 04/18/22 09:57 Dose: Not Given Miscellaneous Information (Vancomycin Consult Active) 1 each N/A UD PRN PRN Reason: Consult Stop: 05/17/22 17:45
[2022-04-18] MEDS ORDERED: THIAMINE HCL 400 MG in SODIUM CHLORIDE 0.9% 50 ML IV ONE (11:00)
--- NOTE | 2022-04-18 12:06 | Fluoroscopy Report ---
FLUOROSCOPIC GUIDED LUMBAR PUNCTURE CLINICAL HISTORY: Encephalopathy. PROCEDURE: The patient was unable to provide informed consent, and the lumbar puncture was performed on an emergent basis as deemed medically necessary by the referring clinician. This was documented in the chart. The patient was placed prone on the fluoroscopy table. The lower back was prepped and tevin ped in the usual sterile fashion. 1% lidocaine was used for local anesthesia. A 20-gauge spinal needl e was inserted into the L4-L5 interlaminar space, and approximately 10 cc of clear colorless cerebros ralph fluid was removed. The patient tolerated the procedure well. There were no immediate complicati ons. A single spot image was saved. The patient left the department in satisfactory condition and desi l be observed on the medical floor. Fluoroscopy time: 0.6 minutes IMPRESSION: Fluoroscopic guided lumbar puncture with removal of approximately 10 cc of cerebrospinal fluid. There were no immediate complications. ACT 112: Negative or not required by law. Electronically signed by: Seferino Rosales M.D. 04/18/2022 12:04 PM
[2022-04-18] MEDS: levETIRAcetam 750 MG in 0.9 % SODIUM CHLORIDE 100 ML IV SCH ×2 (12:38→21:49)
--- NOTE | 2022-04-18 13:05 | Electrocardiogram Report ---
Test Reason : Blood Pressure : / mmHG Vent. Rate : 059 BPM Atrial Rate : 059 BPM P-R Int : 160 ms QRS Dur : 092 ms QT Int : 440 ms P-R-T Axes : 067 019 047 degrees QTc Int : 436 ms Sinus bradycardia Normal ECG When compared with ECG of 16-APR-2022 13:34, QT has lengthened Confirmed by Adolfo De La Fuente ([id number]) on 04/18/2022 1:04:37 PM Referred By: REFERRED SELF Confirmed By:Adolfo De La Fuente
[2022-04-18 13:50] LABS: Appearance CSF Clear; CSF Count Tube # 3; CSF Xanthrochromic No xanthochromia; Color CSF Colorless; Total Protein CSF 44.7 mg/dl (15-45)
[2022-04-18] MEDS: NICOTINE 14 MG/24 HR PATCH TD SCH (13:55)
[2022-04-18 14:57] LABS: Cryptococcus neoformans/ga PCR Not Detected (NotDetected); Cytomegalovirus PCR Not Detected (NotDetected); Enterovirus PCR Not Detected (NotDetected); Escherichia coli K1 PCR Not Detected (NotDetected); Haemophilius influenzae PCR Not Detected (NotDetected); Herpes Simplex Virus 1 PCR Not Detected (NotDetected); Herpes Simplex Virus 2 PCR Not Detected (NotDetected); Human Herpes Virus 6 PCR Not Detected (NotDetected); Human Parechovirus PCR Not Detected (NotDetected); Listeria monocytogenes PCR Not Detected (NotDetected); Neisseria meningitidis PCR Not Detected (NotDetected); Streptococcus agalactiae PCR Not Detected (NotDetected); Streptococcus pneumoniae PCR Not Detected (NotDetected); Varicella Zoster Virus PCR Not Detected (NotDetected)
[2022-04-18] MEDS: VANCOMYCIN HCL 750 MG in SODIUM CHLORIDE 0.9% 250 ML IV SCH (15:20)
[2022-04-18 15:30] LABS: CSF Specific Gravity 1.005 (1.006-1.008)
--- NOTE | 2022-04-18 16:37 | Electrocardiogram Report ---
Test Reason : Blood Pressure : / mmHG Vent. Rate : 060 BPM Atrial Rate : 060 BPM P-R Int : 144 ms QRS Dur : 096 ms QT Int : 446 ms P-R-T Axes : 054 041 065 degrees QTc Int : 446 ms Normal sinus rhythm with sinus arrhythmia Normal ECG When compared with ECG of 18-APR-2022 05:52, (unconfirmed) No significant change was found Confirmed by Adolfo De La Fuente ([id number]) on 04/18/2022 4:36:37 PM Referred By: REFERRED SELF Confirmed By:Adolfo De La Fuente
[2022-04-18] MEDS: THIAMINE HCL 500 MG in SODIUM CHLORIDE 0.9% 50 ML IV SCH (17:58)
[2022-04-19] MEDS: AMPICILLIN 2,000 MG in SODIUM CHLOR 0.9% AD-VAN 100 ML IV SCH ×2 (02:03→05:40)
[2022-04-19] MEDS: dexMEDEtomidine 200 MCG/50 ML BAG IV SCH ×2 (02:03→08:34)
[2022-04-19] MEDS: THIAMINE HCL 500 MG in SODIUM CHLORIDE 0.9% 50 ML IV SCH ×2 (02:06→14:36)
[2022-04-19] MEDS ORDERED: VANCOMYCIN LEVEL ONE (03:30)
[2022-04-19] MEDS: VANCOMYCIN HCL 750 MG in SODIUM CHLORIDE 0.9% 250 ML IV SCH ×2 (04:01→15:09)
[2022-04-19 04:20] LABS: Creatinine Clr Calc Pharmacy 74.9 ml/min; Est GFR (African American) 82.6 ml/min; Est GFR (Non-African American) 71.3 ml/min
[2022-04-19] MEDS: cefTRIAXone SODIUM 2,000 MG in DEXTROSE 5% 50 ML IV SCH ×2 (05:40→18:31)
--- NOTE | 2022-04-19 07:25 | Pharmacy Report ---
Pharmacy Vanc AUC Short Note - Date of Service April 19, 2022 - Assessment & Plan Assessment * 52 year old M receiving VANCOMYCIN, CEFTRIAXONE, AMPICILLIN, ACYCLOVIR for treatment of possible bacterial/viral meningitis/encephalitis. * Pertinent microbiologic data includes: Both bottles of one set of BLCXs growing GPC in chains. Blood BioFire testing reveals the organism is strep species, however not GAS, not GBS, and not strep pneumonia (possibly viridans strep?) * LP performed yesterday: WBC 1, RBC 4, Protein 44.7, GLU 80. CSF BioFire negative (includes most common bacterial, viral and fungal pathogens) * Procal negative, afebrile, mild leukopenia * Renal fxn improved Plan Vancomycin * Trough obtained prior to this AM's 0400 dose = 13.9. Level was drawn at appropriate time. Prior doses hung on schedule. * AUC/BEV is the preferred PK/PD target for vancomycin * AUC guided dosing is effective and associated with decreased risk of nephrotoxicity compared to traditional trough targets * Humphrey continue 750mg IV Q 12 hrs . This dose is still anticipated to achieve target AUC/BEV of 400-600 mg/L.hr and may be associated with a 11 % risk of nephrotoxicity * Will check a level in ~1-2 days if therapy to continue. Pharmacy will continue to follow and will adjust dose/frequency as necessary. Thank you.
--- NOTE | 2022-04-19 07:44 | Critical Care Progress Note ---
Date of Service April 19, 2022 Assessment & Plan (1) Metabolic encephalopathy: (2) Complex partial seizure disorder: (3) Migraine: (4) Hallucinations: (5) Agitation: (6) History of drug abuse in remission: Plan Reason Critically Ill: 52-year-old male with past medical history of drug abuse, complex partial seizure disorder, migraine was admitted to hospital because of altered mental status and agitation. Patient got multiple bouts of haloperidol and benzodiazepine but again not able to get his agitation. ICU consulted for the same Neuro - [facility] ICU: --Acute metabolic encephalopathy --> improving Calcium within normal limits Sodium and glucose within normal limit Patient is moving all the extremities appropriately. I highly doubt stroke being a possibility CT head negative on 04/16/2022, MRI brain 04/17/2022 negative Has been afebrile Calculated serum osmolality 296, measured serum osmolality 300, no osmolar gap Tox screen was negative, ethanol level was negative DTs could be a possibility but low in differential Patient did get Geodon, haloperidol as well as Ativan QTC 418 04/16/2021 --> 481 04/18/22 --> 415 04/19/22 --History of complex partial seizure On lamotrigine at home Keppra started by neurology in the hospital Monitor for signs of seizures --History of migraine Cardiac - --Prolonged QTC Try to avoid any other QT prolonging medication Respiratory - -- No acute issues GI - -- Transaminitis with elevated CPK Could be from underlying seizures Continue to trend RENAL/LYTES - -- CKD Continue to monitor Avoid nephrotoxic medication Monitor BUNs/creatinine -- Urinary retention Continue with Estrada ENDO - ICU hypoglycemia protocol HEME - -- Normocytic anemia Continue to monitor H&H --Thrombocytopenia Has been chronic Continue to monitor ID - -- --Blood culture positive Growing gram-positive cocci in chains I will repeat blood culture today Continue with vancomycin and Rocephin for the time being -- Lumbar puncture 04/18/2022 Normal glucose, high-normal protein Bio fire was negative for everything I will discontinue antiviral coverage as well as ampicillin --Prophylaxis VTE: IPC GI: None Lines:Peripheral, Estrada Diet: Diet as tolerated Plan: In/out: +1 L, urine output 3.9 L Patient's mental status is significantly improved Advance diet as tolerated Follow-up labs from today DC Solu-Medrol Trial of discontinuing Estrada. Patient hemodynamically stable to be downgrade to medical floor Please note the above document was generated using voice recognition software. It may contain grammatical, syntax or spelling errors.Any formal questions or concerns about the content, text or information contained within the body of this dictation should be directly addressed to the provider for clarification. Admission and Anticipated Discharge Date Admission Date: April 18, 2022 Subjective Patient seen and examined at bedside. No acute distress, no adverse events overnight. Patient was awake alert oriented to self and place. He was answering all questions appropriately. Mental status has significantly improved. Denies any headache, no nausea, no vomiting. Patient was getting breakfast at the time of examination He denies use of any illicit drugs. He does say that he is vaping lately. Denies any difficulty chewing no teeth pain Review of Systems Review of Systems: All systems reviewed & are unremarkable except as noted in Subjective Physical Exam Physical Exam: Constitutional: No acute distress HEENT: EOMI, PERRLA Respiratory system: Good air entry bilaterally, no wheeze, no rhonchi, no crackles CVS: S1-S2 positive, no murmurs or gallops Abdomen: Soft, nontender, nondistended, positive bowel sounds x4 Extremities: +2 pulses bilaterally radialis/ dorsalis pedis, no cyanosis, no edema Neuro: Awake alert oriented to self and place Psych: Normal mood and affect G/U: Positive Estrada Skin: no rashes, warm and dry Lymphatic: no cervical or axillary lymphadenopathy Results & Data Results & Data ([facility]) Vital Signs (Past 12 Hours) Vital Signs Temp Pulse Resp BP Pulse Ox O2 Del Method 04/19/22 06:00 55 L 14 124/67 96 Room Air 04/19/22 05:00 58 L 12 113/64 97 04/19/22 04:00 36.7 C 60 15 117/70 96 Room Air 04/19/22 03:00 71 15 110/60 96 04/19/22 02:00 58 L 11 L 116/63 97 04/19/22 01:00 58 L 10 L 105/59 L 97 04/19/22 00:00 79 21 138/68 96 Room Air 04/18/22 23:00 36.6 C 57 L 13 108/56 L 96 04/18/22 22:00 65 12 107/62 96 04/18/22 23:06 74 04/18/22 21:00 88 14 173/73 H 98 Room Air 04/18/22 20:00 90 18 142/72 H 98 Room Air 04/18/22 20:00 105 H Laboratory Results 04/18/22 04:41 04/19/22 03:20 Coding Level of Care Code 93733 Subseq Hosp Care Lvl 3 Diagnoses Metabolic encephalopathy G93.41 Complex partial seizure disorder G40.209 Migraine G43.909 Hallucinations R44.3 Agitation R45.1 History of drug abuse in remission F19.11
--- NOTE | 2022-04-19 08:02 | Hospitalist Progress Note ---
Date of Service April 19, 2022 Assessment & Plan (1) Metabolic encephalopathy: Plan: 52-year-old male past medical history significant for depression, migraine, complex partial seizures admitted for metabolic encephalopathy, with mental status since resolved. Metabolic encephalopathy: Resolved. Presented via EMS due to altered mental status per partner, with agitation in ER and erratic odd behaviors. Admission alcohol level negative, and urine tox screen is negative. Salicylate and Tylenol levels negative. LP studies not suggestive of meningoencephalitis. Lyme and RPR negative. COVID-19 negative. TSH normal. Ammonia level normal. Creatinine down to 1.2. Normal urine and serum osmolality without osmolar gap. CT head without evidence of acute intracranial findings. Brain MRI with seizure protocol without evidence of temporal lobe edema. Urinalysis, chest x-ray without evidence of infection. No fevers or leukocytosis. Procalcitonin normal. UCx no growth @ 48 hours. BCx POSITIVE for alpha Strep (not Enterococcus). - Now on vanc/ceftriaxone for empiric coverage possible testicular abscess, see below. Neurology consulted and appreciate recommendations: treatment of seizure disorder as described below. No evidence of meningoencephalitis and EEG normal today. Psychiatry consulted and appreciate recommendations: 302 warrant removed, and no longer requires 1-to-1. Do not suspect primary psychatric condition as cause of AMS. (2) Scrotal abscess: Plan: With complaints of scrotal mass and swelling today. US scrotum suggests cyst vs. abscess. Urology consulted and appreciate recommendations: for OR tomorrow for scrotal exploration, possible resection of mass, possible incision and drainage of abscess. Continue ceftriaxone/vanc for now until after surgery. (3) Complex partial seizure disorder: Plan: History of. Not impossible that patient had seizure prior to admission, however MRI and EEG without evidence of seizure. Keppra load 1500mg given, and dose increased to 750mg twice daily due to improvement in renal function. Resume Lamictal at 75mg BID x1 week, then 100mg BID thereafter Follow up with Neurology office in 2 weeks for further dose titration. (4) History of drug abuse in remission: Plan: History of drug use in remission. Patient is on Suboxone and per patient's partner he has not missed any doses or taking extra doses. No evidence of acute withdrawal, and patient denies frequent alcohol use. (5) CKD (chronic kidney disease): Plan: CKD with a baseline creatinine around 1.5, though has had a large range over the last several months. Avoid nephrotoxins and renally dose medications. Creatinine 1.18 today. (6) Migraine: Plan: History of migraine on Imitrex as needed. (7) Anemia: Plan: History of with hemoglobin 1012 over the last several years. Likely anemia of chronic disease. Plan Full code Regular diet Ambulate on demand, low risk of DVT Med/Surg Admission and Anticipated Discharge Date Admission Date: April 18, 2022 Subjective No acute events overnight. This morning patient is alert and oriented, pleasant. Does not recall events of last several days, has "bits and pieces" but does not know when they occurred. His last memory was from his day of admission, he recalls thinking the tv was on because he was hearing voices, but there was not any tv on. He does not endorse any recent illicit drug or alcohol use, no missed doses of his Suboxone, no daily medication changes. He does not endorse any recent chest pain or shortness of breath, fevers. He endorses a tender lump in his testicles that appeared a few months ago, started out as a "pimple" that popped, but has since become more swollen. He denies pain or burning with urination, bowel issues. He denies a history of hallucinations in the past. He thinks that an uncle of his might have had hallucinations with a UTI, but no known relatives with primary psychotic disorders. He denies recent seizure history to his knowledge. Review of Systems Constitutional: no fever and no chills Respiratory: no cough and no dyspnea Cardiovascular: no chest pain and no palpitations Gastrointestinal: no abdominal pain, no nausea and no vomiting Genitourinary: + scrotal swelling, + testicle lump and + testicle pain; no dysuria or no hematuria Physical Exam Constitutional: well developed and + thin Eyes: PERRL, conjunctivae normal, anicteric sclerae Respiratory: normal respiratory effort, lungs clear to auscultation Cardiovascular: RRR, no murmur, no edema Gastrointestinal (Abdomen): normal bowel sounds, soft, nontender, no hepatosplenomegaly Musculoskeletal: no cyanosis or clubbing, extremities motor strength 5/5 Skin: no rashes, warm and dry Neurologic: PERRL, EOMI, accommodation nl, no face palsy, no dysarthria Psychiatric: alert and oriented euthymic affect, pleasant, cooperative Genitourinary: firm fluctuant marble-sized mass in midline scrotum without scrotal swelling or erythema Nontender to palpation No purulent drainage Lymphatic: no cervical or axillary lymphadenopathy Results & Data Results & Data ([facility]) Vital Signs (Past 12 Hours) Vital Signs Temp Pulse Resp BP Pulse Ox O2 Del Method 04/19/22 06:00 55 L 14 124/67 96 Room Air 04/19/22 05:00 58 L 12 113/64 97 04/19/22 04:00 36.7 C 60 15 117/70 96 Room Air 04/19/22 03:00 71 15 110/60 96 04/19/22 02:00 58 L 11 L 116/63 97 04/19/22 01:00 58 L 10 L 105/59 L 97 04/19/22 00:00 79 21 138/68 96 Room Air 04/18/22 23:00 36.6 C 57 L 13 108/56 L 96 04/18/22 22:00 65 12 107/62 96 04/18/22 23:06 74 04/18/22 21:00 88 14 173/73 H 98 Room Air PG Care Time/CCT Total # of Minutes Spent Total Time Spent with Patient: Total time spent is greater than 50% in coordination of care (as documented) at patient's floor/unit and/or counseling patient: Coding Level of Care Code 47123 Subseq Hosp Care Lvl 3 Diagnoses Metabolic encephalopathy G93.41 Scrotal abscess N49.2 Complex partial seizure disorder G40.209 History of drug abuse in remission F19.11 CKD (chronic kidney disease) N18.9 Migraine G43.909 Anemia D64.9
[2022-04-19 08:17] LABS: Basophils # (auto) 0.02 K/uL (0-0.2); Basophils % (auto) 0.4 %; Eosinophils # (auto) 0.01 K/uL (0-0.50); Eosinophils % (auto) 0.2 %; Hematocrit (blood only) 27.9 % (40.1-51.0); Hemoglobin 9.5 g/dl (14.0-18.0); Immature Granulocytes # (auto) 0.02 K/uL (0.00-0.02); Immature Granulocytes % (auto) 0.4 %; Lymphocytes # (auto) 2.17 K/uL (1.2-3.4); Lymphocytes % (auto) 38.2 %; Mean Corpuscular Hemoglobin 30.8 pg (25.0-34.0); Mean Corpuscular Hgb Conc 34.1 g/dL (32.0-36.0); Mean Corpuscular Volume 90.6 fL (80.0-100.0); Mean Platelet Volume 8.7 fL (9.4-12.4); Monocytes % (auto) 5.3 %; Neutrophils # (auto) 3.16 K/uL (1.4-6.5); Neutrophils % (auto) 55.5 %; Platelet Count 101 K/uL (130-400); RDW Coefficient of Variation 13.7 % (11.5-14.5); RDW Standard Deviation 45.1 fL (36.4-46.3); Red Blood Count 3.08 M/uL (4.63-6.08); White Blood Count 5.68 K/ul (4.8-10.8)
[2022-04-19 08:35] LABS: Calcium 8.8 mg/dl (8.5-10.1); Creatinine Clr Calc Pharmacy 74.3 ml/min; Est GFR (African American) 81.7 ml/min; Est GFR (Non-African American) 70.5 ml/min; Magnesium 2.2 mg/dl (1.7-2.4); Potassium 3.6 mmol/L (3.5-5.1)
[2022-04-19] MEDS: BUPRENORPHINE/NALOXONE 8/2 MG TAB SL SCH (08:42)
[2022-04-19] MEDS: lamoTRIgine 25 MG TAB PO SCH ×2 (08:43→20:05)
[2022-04-19] MEDS: NICOTINE 14 MG/24 HR PATCH TD SCH (08:43)
[2022-04-19] MEDS: lamoTRIgine 100 MG TAB PO SCH (08:43)
--- NOTE | 2022-04-19 10:02 | Ultrasound Report ---
TESTICULAR ULTRASOUND HISTORY: Testicular mass, possible abscess COMPARISON: None. FINDINGS: Right testis: 46 x 23 x 21 mm. There are no intratesticular masses. Normal color flow. No hydrocele. The epididymis is unremarkable. Left testis: 43 x 23 x 25 mm. There are no intratesticular masses. Normal color flow. No hydrocele. T he epididymis is unremarkable. Within the midline of the scrotal wall there is a subcutaneous heterogeneous focus measuring 17 x 17 x 13 mm. This demonstrates surrounding color flow and therefore favors a complex fluid collection. Th is could represent an abscess or possibly a cystic mass. IMPRESSION: 1. Normal bilateral testes. 2. Within the midline of the scrotal wall there is a subcutaneous heterogeneous focus measuring 17 x 17 x 13 mm. This demonstrates surrounding color flow and therefore favors a complex fluid collection. This could represent an abscess or possibly a cystic mass. ACT 112: Negative or not required by law. Electronically signed by: Addison Lema M.D. 04/19/2022 10:01 AM
--- NOTE | 2022-04-19 11:24 | Urology Consultation ---
Date of Consultation April 19, 2022 Assessment & Plan (1) Scrotal abscess: Plan 52yo M admitted with AMS and now with complaints of scrotal mass and swelling today. -Urology consulted for scrotal mass, concern for abscess. -Scrotal ultrasound notable for a complex fluid collection, possibly representing an abscess versus cystic mass -Afebrile and hemodynamically stable. -No leukocytosis and normal renal function. -Urinalysis on admission without evidence of infection. -Estrada catheter intact, draining clear yellow urine. -Imaging and plan of care reviewed with Dr. Alcala. -We will plan to proceed to the OR tomorrow for scrotal exploration, possible resection of mass, possible incision and drainage of abscess depending on findings. Pt agreeable to proceeding. -Will make NPO at midnight. -Continue broad-spectrum antibiotics. -Discussed plan with hospital team. -Urology will follow History of Present Illness Reason for Consultation: Scrotal mass concern for abscess Attending Physician: Kathy William DO History of Present Illness 52-year-old male with a past medical history significant for depression, migraine, drug abuse in remission, complex partial seizures admitted for altered mental status/psychosis/metabolic encephalopathy. He has been in the ICU receiving broad-spectrum antibiotics. Urinalysis without evidence of infection. Mental status has improved and today he endorsed a tender lump on his scrotum that appeared a few months ago, started out as a "pimple" that popped, but has since become more swollen. Also noted occasional purulent drainage. A scrotal ultrasound was obtained and notable for a complex fluid collection, possibly representing an abscess versus cystic mass. Urology consulted for scrotal mass, concern for abscess. He is afebrile and hemodynamically stable. No leukocytosis and normal renal function. Urinalysis on admission without evidence of infection. Currently on ceftriaxone and vancomycin. Estrada catheter intact. Scrotal US - 1. Normal bilateral testes. 2. Within the midline of the scrotal wall there is a subcutaneous heterogeneous focus measuring 17 x 17 x 13 mm. This demonstrates surrounding color flow and therefore favors a complex fluid collection. This could represent an abscess or possibly a cystic mass. Patient examined at bedside in the ICU. Awake, resting in bed on arrival. No acute distress. Reports he is feeling much better. Estrada catheter intact, draining clear yellow urine. Denies any pain or discomfort at present. No fevers or chills. Denies nausea or vomiting. Patient reports a scrotal mass with occasional purulent drainage. States he first noticed this approximately 6 months ago. He did have a scrotal abscess in the same area a few years ago, treated with antibiotics and eventually resolved. No erythema or edema. Nontender with palpation. No drainage at present. Denies additional urological history. Does not follow with a urologist. Allergies Allergy/AdvReac Type Severity Reaction Status Date / Time phenytoin Allergy Intermediate HIVES Verified 03/26/22 13:25 valproic acid Allergy Intermediate HIVES Verified 03/26/22 13:25 aspirin AdvReac Unknown BRUISING Verified 03/26/22 13:25 Home Medications Medication Instructions Recorded Confirmed Type buprenorphine 8 mg-naloxone 2 mg 1.5 tab sublingual DAILY 01/27/22 03/26/22 History sublingual tablet hydroxyzine HCl 10 mg tablet 10 mg PO BID PRN Anxiety 01/27/22 03/26/22 History ibuprofen 200 mg tablet 400 - 600 mg PO Q8 PRN Pain 01/27/22 03/26/22 History propranolol 20 mg tablet 20 mg PO BID #60 tabs 03/26/22 03/26/22 Rx sumatriptan succinate 100 mg tablet 100 mg PO DIRECTED PRN Migraine 03/26/22 03/26/22 Rx Headache #9 tabs lamotrigine 100 mg tablet 100 mg PO BID 30 days #60 tabs 04/05/22 Rx lamotrigine 25 mg tablet (Lamictal) 25 mg PO BID 30 days #60 tabs 04/09/22 Rx Patient History Medical History Abdominal pain Abdominal pain Abdominal pain Abscessed tooth Complex partial seizure Facial cellulitis Facial cellulitis Facial cellulitis GI bleed GI bleed Migraine Tobacco use disorder (02/26/13) Surgical History History of cholecystectomy History of hand surgery Family History Father Heart disease Mother Cancer Social History Smoking Status: Unknown if ever smoked Tobacco Type: Cigarettes packs per day: 0.50; Hx Substance Use: Yes Last Used Substance Other:: unknown Preferred Language: Kiswahili Communication Ability: Impaired Waste Water Operator Required: No marital status: Single Current Living Situation: Family Current Living Situation Comment: brought in by EMS, pt very disoriented and confused Feels Safe at Home: Yes Assistive Devices: None Review of Systems Review of Systems: All systems reviewed & are unremarkable except as noted in HPI & below Physical Exam Constitutional: cooperative and comfortable; no acute distress Neck: normal visual inspection Respiratory: normal respiratory effort; no respiratory distress and no labored breathing Musculoskeletal: Head/Neck/Chest: normocephalic Skin: No visible rashes or lesions to exposed skin areas Neurologic: moves all extremities and awake Psychiatric: A+Ox3, euthymic affect Genitourinary: Estrada catheter intact. Midline scrotal mass noted with firm/fluctuant area. No crepitus. No scrotal edema or erythema. Non-tender with palpation. No open areas or drainage. Results & Data ([facility]) Vital Signs (Past 12 Hours) Vital Signs Temp Pulse Resp BP Pulse Ox O2 Del Method 04/19/22 09:01 145/83 H 04/19/22 09:01 82 20 98 04/19/22 09:00 82 18 97 04/19/22 08:01 110/74 04/19/22 08:01 36.8 C 91 H 18 94 Room Air 04/19/22 08:00 65 15 96 04/19/22 07:00 68 17 92 04/19/22 07:00 125/69 04/19/22 06:00 55 L 14 124/67 96 Room Air 04/19/22 05:00 58 L 12 113/64 97 04/19/22 04:00 36.7 C 60 15 117/70 96 Room Air 04/19/22 03:00 71 15 110/60 96 04/19/22 02:00 58 L 11 L 116/63 97 04/19/22 01:00 58 L 10 L 105/59 L 97 04/19/22 00:00 79 21 138/68 96 Room Air PG Care Time/CCT Total # of Minutes Spent Total Time Spent with Patient: Total time spent is greater than 50% in coordination of care (as documented) at patient's floor/unit and/or counseling patient: Coding Level of Care Code 40367 Inpt Consult Level 3 Diagnoses Scrotal abscess N49.2
[2022-04-19] MEDS: HEPARIN SOD 5,000 UNIT/0.5 ML VIAL SQ SCH ×2 (11:26→23:56)
--- NOTE | 2022-04-19 11:33 | Electroencephalogram ---
EEG Procedure Note Date of Service April 19, 2022 Start / End Times Start Time: 10:16 AM End Time: 10:36 AM Referring Physician Gilbert Zamudio MD History History of seizure disorder, admitted with agitated delirium, improved this morning Home Medication List Medication Instructions Recorded Confirmed Type buprenorphine 8 mg-naloxone 2 mg 1.5 tab sublingual DAILY 01/27/22 03/26/22 History sublingual tablet hydroxyzine HCl 10 mg tablet 10 mg PO BID PRN Anxiety 01/27/22 03/26/22 History ibuprofen 200 mg tablet 400 - 600 mg PO Q8 PRN Pain 01/27/22 03/26/22 History propranolol 20 mg tablet 20 mg PO BID #60 tabs 03/26/22 03/26/22 Rx sumatriptan succinate 100 mg tablet 100 mg PO DIRECTED PRN Migraine 03/26/22 03/26/22 Rx Headache #9 tabs lamotrigine 100 mg tablet 100 mg PO BID 30 days #60 tabs 04/05/22 Rx lamotrigine 25 mg tablet (Lamictal) 25 mg PO BID 30 days #60 tabs 04/09/22 Rx Inpatient Medication List Buprenorphine/Naloxone (Buprenorphine/Naloxone 8/2 Mg Tab) 1.5 tab SL DAILY [facility] Stop: 05/17/22 08:59 Last Admin: 04/19/22 08:42 Dose: 1.5 tab Documented By: Admin: 04/18/22 10:11 Dose: 1.5 tab Documented By: Admin: 04/17/22 09:37 Dose: Not Given Documented By: URSULA Heparin Sodium (Porcine) (Heparin Sod 5,000 Unit/0.5 Ml Vial) 5,000 units SQ Q12H ELVIN Stop: 05/19/22 11:59 Last Admin: 04/19/22 11:26 Dose: 5,000 units Documented By: BRYNN Ceftriaxone Sodium 2,000 mg/ (Dextrose) 70 mls @ 140 mls/hr IV Q12H ELVIN Stop: 04/27/22 17:59 Last Infusion: 04/19/22 06:23 Dose: 0 mls/hr Documented By: Admin: 04/19/22 05:40 Dose: 140 mls/hr Documented By: Infusion: 04/18/22 17:47 Dose: 0 mls/hr Documented By: Admin: 04/18/22 17:01 Dose: 140 mls/hr Documented By: Infusion: 04/18/22 06:22 Dose: 0 mls/hr Documented By: Admin: 04/18/22 05:39 Dose: 140 mls/hr Documented By: Infusion: 04/17/22 18:18 Dose: 0 mls/hr Documented By: Admin: 04/17/22 17:54 Dose: 140 mls/hr Documented By: URSULA Vancomycin HCl 750 mg/ Sodium (Chloride) 265 mls @ 200 mls/hr IV Q12H ELVIN; Protocol Stop: 04/28/22 15:59 Last Infusion: 04/19/22 05:32 Dose: 0 mls/hr Documented By: Admin: 04/19/22 04:01 Dose: 200 mls/hr Documented By: Infusion: 04/18/22 16:52 Dose: 0 mls/hr Documented By: Admin: 04/18/22 15:20 Dose: 200 mls/hr Documented By: URSULA Thiamine HCl 500 mg/ Sodium (Chloride) 55 mls @ 210 mls/hr IV Q8H ELVIN Stop: 04/19/22 17:59 Last Infusion: 04/19/22 03:38 Dose: 0 mls/hr Documented By: Admin: 04/19/22 02:06 Dose: 210 mls/hr Documented By: Infusion: 04/18/22 18:33 Dose: 0 mls/hr Documented By: Admin: 04/18/22 17:58 Dose: 210 mls/hr Documented By: URSULA Miscellaneous (Remove Nicoderm Patch) 1 each N/A DAILY@0859 [facility] Stop: 05/19/22 08:58 Last Admin: 04/19/22 08:39 Dose: 1 each Documented By: BRYNN Nicotine (Nicotine 14 Mg/24 Hr Patch) 14 mg TD QAM ELVIN Stop: 05/18/22 13:29 Last Admin: 04/19/22 08:43 Dose: 14 mg Documented By: Admin: 04/18/22 13:55 Dose: 14 mg Documented By: URSULA Discontinued Medications Gadobutrol (Gadobutrol 65ml Vial) 7.3 ml IV ONCE ONE Stop: 04/17/22 20:19 Last Admin: 04/17/22 20:19 Dose: 7.3 ml Documented By: ALFA Haloperidol Lactate (Haloperidol Lactate 5 Mg/Ml 1 Ml Vial) 5 mg IM NOW STA Stop: 04/16/22 14:53 Last Admin: 04/16/22 15:00 Dose: 5 mg Documented By: NMS Haloperidol Lactate (Haloperidol Lactate 5 Mg/Ml 1 Ml Vial) 5 mg IM NOW STA Stop: 04/16/22 15:14 Last Admin: 04/16/22 15:18 Dose: 5 mg Documented By: MT Haloperidol Lactate (Haloperidol Lactate 5 Mg/Ml 1 Ml Vial) 5 mg IM NOW STA Stop: 04/17/22 00:26 Last Admin: 04/17/22 00:34 Dose: 5 mg Documented By: JR Haloperidol Lactate (Haloperidol Lactate 5 Mg/Ml 1 Ml Vial) 5 mg IV Q6H PRN PRN Reason: Agitation Stop: 05/17/22 03:21 Last Admin: 04/17/22 17:14 Dose: 2.5 mg Documented By: Admin: 04/17/22 17:02 Dose: 2.5 mg Documented By: Admin: 04/17/22 10:20 Dose: 5 mg Documented By: Admin: 04/17/22 04:06 Dose: 5 mg Documented By: SHAWN Lorazepam 2 mg/ Syringe 2 mls @ 2 mls/min IV 0200 ONE Stop: 04/17/22 02:01 Last Admin: 04/17/22 03:24 Dose: Not Given Documented By: HALI Lactated Ringer's (Lr) 1,000 mls @ 125 mls/hr IV .Q8H ELVIN Stop: 04/17/22 19:21 Last Infusion: 04/17/22 18:19 Dose: 0 mls/hr Documented By: Admin: 04/17/22 11:08 Dose: 125 mls/hr Documented By: Infusion: 04/17/22 11:08 Dose: 125 mls/hr Documented By: Admin: 04/17/22 03:48 Dose: 125 mls/hr Documented By: HALI Lorazepam 1 mg/ Syringe 1 mls @ 2 mls/min IV Q8H PRN PRN Reason: Anxiety Stop: 05/17/22 03:21 Last Admin: 04/17/22 13:35 Dose: 2 mls/min Documented By: Admin: 04/17/22 04:26 Dose: 2 mls/min Documented By: HALI Levetiracetam 1,500 mg/ Sodium (Chloride) 115 mls @ 440 mls/hr IV NOW STA Stop: 04/17/22 10:19 Last Infusion: 04/17/22 10:48 Dose: 0 mls/hr Documented By: Admin: 04/17/22 10:31 Dose: 440 mls/hr Documented By: URSULA Dexmedetomidine/Sodium Chloride (Precedex) 200 mcg in 50 mls @ 0 mls/hr IV .Q0M ELVIN; Protocol Stop: 04/21/22 15:44 Last Admin: 04/19/22 08:34 Dose: Not Given Documented By: Admin: 04/19/22 02:03 Dose: Not Given Documented By: Titration: 04/18/22 15:31 Dose: 0 mcg/kg/hr, 0 mls/hr Documented By: Titration: 04/18/22 07:05 Dose: 0 mcg/kg/hr, 0 mls/hr Documented By: Titration: 04/18/22 06:56 Dose: 0.4 mcg/kg/hr, 7.3 mls/hr Documented By: TG Co-signed By: WRS Titration: 04/18/22 06:30 Dose: 0 mcg/kg/hr, 0 mls/hr Documented By: Titration: 04/18/22 05:21 Dose: 0.5 mcg/kg/hr, 9.2 mls/hr Documented By: Titration: 04/18/22 05:00 Dose: 0 mcg/kg/hr, 0 mls/hr Documented By: Titration: 04/18/22 04:30 Dose: 0.5 mcg/kg/hr, 9.2 mls/hr Documented By: Titration: 04/18/22 04:00 Dose: 0 mcg/kg/hr, 0 mls/hr Documented By: Admin: 04/18/22 03:50 Dose: 0.5 mcg/kg/hr, 9.2 mls/hr Documented By: TG Co-signed By: VK Titration: 04/18/22 03:33 Dose: 0.5 mcg/kg/hr, 9.2 mls/hr Documented By: TG Co-signed By: VK Titration: 04/18/22 00:00 Dose: 0.5 mcg/kg/hr, 9.2 mls/hr Documented By: Titration: 04/17/22 23:45 Dose: 0.6 mcg/kg/hr, 11 mls/hr Documented By: Titration: 04/17/22 23:30 Dose: 0.7 mcg/kg/hr, 12.8 mls/hr Documented By: Titration: 04/17/22 23:15 Dose: 0.8 mcg/kg/hr, 14.7 mls/hr Documented By: Titration: 04/17/22 23:00 Dose: 0.9 mcg/kg/hr, 16.5 mls/hr Documented By: Admin: 04/17/22 22:48 Dose: 1 mcg/kg/hr, 18.3 mls/hr Documented By: TG Co-signed By: VK Titration: 04/17/22 22:48 Dose: 1 mcg/kg/hr, 18.3 mls/hr Documented By: TG Co-signed By: VK Titration: 04/17/22 22:05 Dose: 1 mcg/kg/hr, 18.3 mls/hr Documented By: TG Co-signed By: VK Admin: 04/17/22 20:54 Dose: 1 mcg/kg/hr, 18.3 mls/hr Documented By: TG Co-signed By: JT Titration: 04/17/22 20:48 Dose: 1 mcg/kg/hr, 18.3 mls/hr Documented By: TG Co-signed By: JT Titration: 04/17/22 19:06 Dose: 1 mcg/kg/hr, 18.3 mls/hr Documented By: WRS Co-signed By: TG Admin: 04/17/22 17:57 Dose: 0.9 mcg/kg/hr, 16.5 mls/hr Documented By: WRS Co-signed By: DMB Titration: 04/17/22 17:57 Dose: 0.9 mcg/kg/hr, 16.5 mls/hr Documented By: WRS Co-signed By: DMB Titration: 04/17/22 17:27 Dose: 0.9 mcg/kg/hr, 16.5 mls/hr Documented By: Titration: 04/17/22 17:15 Dose: 0.8 mcg/kg/hr, 14.7 mls/hr Documented By: Titration: 04/17/22 16:58 Dose: 0.7 mcg/kg/hr, 12.8 mls/hr Documented By: Titration: 04/17/22 16:45 Dose: 0.6 mcg/kg/hr, 11 mls/hr Documented By: Titration: 04/17/22 16:20 Dose: 0.5 mcg/kg/hr, 9.2 mls/hr Documented By: Admin: 04/17/22 15:58 Dose: 0.4 mcg/kg/hr, 7.3 mls/hr Documented By: TGS Co-signed By: HITESH Lorazepam 2 mg/ Syringe 2 mls @ 2 mls/min IV Q2H PRN PRN Reason: Anxiety Stop: 05/17/22 14:01 Last Admin: 04/18/22 11:30 Dose: 2 mls/min Documented By: Admin: 04/18/22 02:21 Dose: 2 mls/min Documented By: Admin: 04/17/22 21:00 Dose: 2 mls/min Documented By: Admin: 04/17/22 17:37 Dose: 2 mls/min Documented By: URSULA Levetiracetam 500 mg/ Sodium (Chloride) 105 mls @ 420 mls/hr IV Q12H ELVIN Stop: 05/17/22 22:00 Last Infusion: 04/17/22 23:11 Dose: 0 mls/hr Documented By: Admin: 04/17/22 22:53 Dose: 420 mls/hr Documented By: WILSON Ampicillin Sodium 2,000 mg/ (Sodium Chloride) 100 mls @ 200 mls/hr IV Q4H ELVIN; Protocol Stop: 04/19/22 17:59 Last Infusion: 04/19/22 06:23 Dose: 0 mls/hr Documented By: Admin: 04/19/22 05:40 Dose: 200 mls/hr Documented By: Infusion: 04/19/22 03:37 Dose: 0 mls/hr Documented By: Admin: 04/19/22 02:03 Dose: 200 mls/hr Documented By: Infusion: 04/18/22 22:21 Dose: 0 mls/hr Documented By: Admin: 04/18/22 21:05 Dose: 200 mls/hr Documented By: Infusion: 04/18/22 17:57 Dose: 0 mls/hr Documented By: Admin: 04/18/22 17:22 Dose: 200 mls/hr Documented By: Infusion: 04/18/22 14:35 Dose: 0 mls/hr Documented By: Admin: 04/18/22 13:55 Dose: 200 mls/hr Documented By: Infusion: 04/18/22 10:08 Dose: 0 mls/hr Documented By: Admin: 04/18/22 09:24 Dose: 200 mls/hr Documented By: Infusion: 04/18/22 05:44 Dose: 0 mls/hr Documented By: Admin: 04/18/22 05:02 Dose: 200 mls/hr Documented By: Infusion: 04/18/22 02:36 Dose: 0 mls/hr Documented By: Admin: 04/18/22 01:10 Dose: 200 mls/hr Documented By: Infusion: 04/17/22 22:53 Dose: 0 mls/hr Documented By: Admin: 04/17/22 21:44 Dose: 200 mls/hr Documented By: Infusion: 04/17/22 19:04 Dose: 0 mls/hr Documented By: Admin: 04/17/22 18:19 Dose: 200 mls/hr Documented By: URSULA Vancomycin HCl 1,500 mg/ (Sodium Chloride) 530 mls @ 200 mls/hr IV NOW ONE; Protocol Stop: 04/17/22 20:38 Last Infusion: 04/17/22 21:13 Dose: 0 mls/hr Documented By: Admin: 04/17/22 18:00 Dose: 200 mls/hr Documented By: TGS Acyclovir Sodium 700 mg/ (Dextrose) 264 mls @ 250 mls/hr IV Q8H ELVIN Stop: 04/19/22 10:00 Last Infusion: 04/18/22 10:30 Dose: 0 mls/hr Documented By: Admin: 04/18/22 09:24 Dose: 250 mls/hr Documented By: Infusion: 04/18/22 02:36 Dose: 0 mls/hr Documented By: Admin: 04/18/22 01:10 Dose: 250 mls/hr Documented By: Infusion: 04/17/22 20:54 Dose: 0 mls/hr Documented By: Admin: 04/17/22 18:18 Dose: 250 mls/hr Documented By: URSULA Methylprednisolone 40 mg/ (Syringe) 0.64 mls @ 1.5 mls/min IV DAILY ELVIN Stop: 05/17/22 17:59 Last Admin: 04/18/22 08:38 Dose: 1.5 mls/min Documented By: Admin: 04/17/22 18:19 Dose: 1.5 mls/min Documented By: URSULA Vancomycin HCl 1,000 mg/ (Sodium Chloride) 270 mls @ 200 mls/hr IV Q18H ELVIN; Protocol Stop: 04/28/22 03:59 Last Infusion: 04/18/22 05:22 Dose: 0 mls/hr Documented By: Admin: 04/18/22 03:49 Dose: 200 mls/hr Documented By: WILSON Magnesium Sulfate/Dextrose (Magnesium Sulfate / D5w) 1 gm in 100 mls @ 50 mls/hr IV Q2H ELVIN Stop: 04/18/22 12:14 Last Infusion: 04/18/22 12:37 Dose: 0 mls/hr Documented By: Infusion: 04/18/22 12:00 Dose: 50 mls/hr Documented By: Infusion: 04/18/22 11:15 Dose: 0 mls/hr Documented By: Admin: 04/18/22 09:55 Dose: 50 mls/hr Documented By: Infusion: 04/18/22 09:55 Dose: 50 mls/hr Documented By: Admin: 04/18/22 07:59 Dose: 50 mls/hr Documented By: Infusion: 04/18/22 07:59 Dose: 50 mls/hr Documented By: Admin: 04/18/22 06:29 Dose: 50 mls/hr Documented By: WILSON Thiamine HCl 100 mg/ Syringe 10 mls @ 2 mls/min IV QAM ELVIN Stop: 05/18/22 08:59 Last Admin: 04/18/22 08:38 Dose: 2 mls/min Documented By: URSULA Dextrose/Lactated Ringer's (D5w And Lactated Ringers) 1,000 mls @ 100 mls/hr IV .Q10H ELVIN Stop: 04/19/22 05:14 Last Infusion: 04/19/22 05:32 Dose: 0 mls/hr Documented By: Admin: 04/18/22 20:05 Dose: 100 mls/hr Documented By: Infusion: 04/18/22 20:05 Dose: 100 mls/hr Documented By: Infusion: 04/18/22 12:00 Dose: 100 mls/hr Documented By: Infusion: 04/18/22 11:15 Dose: 0 mls/hr Documented By: Admin: 04/18/22 09:19 Dose: 100 mls/hr Documented By: URSULA Levetiracetam 750 mg/ Sodium (Chloride) 107.5 mls @ 420 mls/hr IV Q12H ELVIN Stop: 04/19/22 12:00 Last Infusion: 04/18/22 22:23 Dose: 0 mls/hr Documented By: Admin: 04/18/22 21:49 Dose: 420 mls/hr Documented By: Infusion: 04/18/22 12:59 Dose: 0 mls/hr Documented By: Admin: 04/18/22 12:38 Dose: 420 mls/hr Documented By: URSULA Thiamine HCl 400 mg/ Sodium (Chloride) 54 mls @ 210 mls/hr IV ONE ONE Stop: 04/18/22 11:15 Last Infusion: 04/18/22 13:10 Dose: 0 mls/hr Documented By: Admin: 04/18/22 12:56 Dose: 210 mls/hr Documented By: URSULA Magnesium Sulfate/Dextrose (Magnesium Sulfate / D5w) 1 gm in 100 mls @ 50 mls/hr IV Q2H ELVIN Stop: 04/19/22 02:14 Last Infusion: 04/19/22 02:04 Dose: 0 mls/hr Documented By: Admin: 04/18/22 23:52 Dose: 50 mls/hr Documented By: Infusion: 04/18/22 23:52 Dose: 50 mls/hr Documented By: Admin: 04/18/22 22:32 Dose: 50 mls/hr Documented By: WILSON Lamotrigine (Lamotrigine 100 Mg Tab) 100 mg PO BID ELVIN Stop: 05/17/22 08:59 Last Admin: 04/19/22 08:43 Dose: 100 mg Documented By: Admin: 04/18/22 20:00 Dose: 100 mg Documented By: Admin: 04/18/22 09:56 Dose: Not Given Documented By: Admin: 04/17/22 20:59 Dose: Not Given Documented By: Admin: 04/17/22 09:37 Dose: Not Given Documented By: URSULA Lamotrigine (Lamotrigine 25 Mg Tab) 25 mg PO BID ELVIN Stop: 05/17/22 08:59 Last Admin: 04/19/22 08:43 Dose: 25 mg Documented By: Admin: 04/18/22 20:00 Dose: 25 mg Documented By: Admin: 04/18/22 09:57 Dose: Not Given Documented By: Admin: 04/17/22 20:59 Dose: Not Given Documented By: Admin: 04/17/22 09:37 Dose: Not Given Documented By: URSULA Lorazepam (Lorazepam 1 Mg/1 Ml Syr) 1 mg IM NOW STA; Protocol Stop: 04/16/22 14:53 Last Admin: 04/16/22 15:01 Dose: 1 mg Documented By: SRIRAM Lorazepam (Lorazepam 1 Mg/1 Ml Syr) 1 mg IM NOW STA; Protocol Stop: 04/17/22 00:26 Last Admin: 04/17/22 00:34 Dose: 1 mg Documented By: Lorazepam (Lorazepam 1 Mg/1 Ml Syr) 2 mg IM 0220 ONE Stop: 04/17/22 02:21 Last Admin: 04/17/22 02:28 Dose: 2 mg Documented By: Lorazepam (Lorazepam 1 Mg/1 Ml Syr) 1 mg IM NOW STA; Protocol Stop: 04/17/22 02:57 Last Admin: 04/17/22 03:24 Dose: Not Given Documented By: HALI Lorazepam (Lorazepam 1 Mg/1 Ml Syr) 1 mg IM 0305 ONE Stop: 04/17/22 03:06 Last Admin: 04/17/22 03:37 Dose: 1 mg Documented By: HALI Lorazepam (Lorazepam 1 Mg/1 Ml Syr) 1 mg IV NOW STA; Protocol Stop: 04/17/22 03:17 Last Admin: 04/17/22 03:51 Dose: Not Given Documented By: HALI Morphine Sulfate (Morphine Sulfate 2 Mg/Ml Carp) 2 mg IV NOW STA Stop: 04/17/22 05:02 Last Admin: 04/17/22 05:16 Dose: 2 mg Documented By: HALI Propranolol HCl (Propranolol Hcl 20 Mg Tab) 20 mg PO BID ELVIN Stop: 05/17/22 08:59 Last Admin: 04/17/22 09:37 Dose: Not Given Documented By: URSULA Ziprasidone (Ziprasidone 20 Mg/Ml Sdv) 10 mg IM NOW STA Stop: 04/17/22 06:14 Last Admin: 04/17/22 06:31 Dose: 10 mg Documented By: HALI Description This is a 21 electrode EEG with a single channel dedicated to limited EKG. The electrodes were placed in accordance with the International 10-20 system. There is a posterior dominant rhythm of 10 Hz which is symmetrically distributed and attenuates with eye opening. There is a normal anterior to posterior organization. Photic stimulation is unremarkable. Hyperventilation is not performed. There is a symmetric frontal beta rhythm. There is no focal slowing. There are no epileptiform abnormalities. There is intermittent movement artifact. Interpretation Normal-appearing awake/drowsy EEG. A normal EEG does not completely exclude a diagnosis of epilepsy. Further clinical correlation may be needed. [facility] EEG Procedure Codes Indication for Procedure (1) Complex partial seizure disorder: (2) Encephalopathy: Neurology Neurology: 48233 EEG include record awake & drowsy
--- NOTE | 2022-04-19 11:56 | Electrocardiogram Report ---
Test Reason : Blood Pressure : / mmHG Vent. Rate : 055 BPM Atrial Rate : 055 BPM P-R Int : 146 ms QRS Dur : 088 ms QT Int : 434 ms P-R-T Axes : 062 032 063 degrees QTc Int : 415 ms Sinus bradycardia Minor Anterior ST elevation, most consistent with repolarization variant Otherwise normal ECG When compared with ECG of 18-APR-2022 10:46, No significant change was found Confirmed by Bhupinder Lawrence ([id number]) on 04/19/2022 11:56:06 AM Referred By: REFERRED SELF Confirmed By:Bhupinder Lawrence
--- NOTE | 2022-04-19 12:06 | Psychiatric Progress Note ---
Date of Service April 19, 2022 Impression / Recommendations Impression 52 yo with history of depression, seizures and substance use (on maintenance suboxone) presenting with acute mental status changes, agitation and visual hallucinations. Presentation last month for alcohol intoxication and odd behaviors and refused UDS at that time. Diagnostically consistent with acute encephalopathy, agitated delirium which is improving. 04/19/22: Significant improvement in delirium today, no longer restless, fully oriented and while he doesn't recall much of the last few days can speak to hours prior to ED presentation when he began to develop paranoia, saw flashes of light and then got increasingly confused. No current paranoia, denies SI and HI and able to attend to self-care needs. As no evidence for primary psychiatric condition will disposition 302 warrant, no longer requires 1-on-1. (1) Encephalopathy: Plan 04/19/22: -302 warrant dispositioned, no longer requires 1-on-1; if he were to ask to leave AMA would assess for decision making capacity to do so Interval History Identifying Information 52 yo man with history of depression and seizures admitted for confusion. Psychiatry consulted for diagnostic and medication recommendations. Chief Complaint "I feel so much better". Review of Systems Notes starting to eat and drink a bit Subjective Subjective Patient was seen & assessed and interval progress reviewed. Alert, fully oriented and conversing normally this morning. He can't recall events of recent days but notes he was having some "genital" health concerns and had been delaying seeing a doctor and this was causing him some stress in recent weeks but denies any recent mood changes, depression, sleep disruption nor substance use. Recalls becoming very paranoid a few hours before coming to the ED for this admission noting "I thought the TV was sending me messages and that the person on the radio was talking about me" and then recalls having the visual hallucination of bright light. He also recalls wondering if he heard people fighting on his back deck but now notes "I bet it was just noise from acorns falling because we get a lot of those this time of year". Denies any SI nor HI. Denies any current paranoia. Denies any history of past paranoia. Relieved he is feeling better states "I wasn't sure what was real and what was a dream these past few days". Asks appropriately and politely for some ice water. Denies any other questions or concerns. Physical Exam Psychiatric Orientation: alert and oriented x 3 Apperance: appropriately dressed and appropriately groomed Eye Contact: good eye contact Motor Behavior: no abnormal motor movements Speech: normal rate/rhythm/volume of speech Affect: euthymic affect Mood: no depressed mood and no anxious mood Thought Process: linear/logical thought process Thought Content: reality based without delusions Suicidal Thoughts: denies suicidal thoughts Homicidal Thoughts: denies homicidal thoughts Hallucinations: no auditory hallucinations and no visual hallucinations Cognition: remote memory grossly intact, attention grossly intact and language grossly intact; + recent memory not intact (can't recall events while experiencing delirium ) Estimated Intelligence: consistent with education level Insight: + fair insight Judgement: + fair judgement Vital Signs (Past 24 Hours) Last Vital Signs Temp 36.8 C 04/19/22 08:01 Pulse 82 04/19/22 09:01 Resp 20 04/19/22 09:01 BP 145/83 H 04/19/22 09:01 Pulse Ox 98 04/19/22 09:01 O2 Del Method 04/19/22 08:01 Results & Data ([facility]) Laboratory Results Laboratory Results - last 24 hr 04/18/22 04/18/22 04/18/22 11:45 11:45 11:45 WBC RBC Hgb Hct MCV MCH MCHC RDW Std Deviation RDW Coeff of Roland Plt Count MPV Immature Gran % (Auto) Neut % (Auto) Lymph % (Auto) [place] % (Auto) Eos % (Auto) Baso % (Auto) Neut # (Auto) Lymph # (Auto) [place] # (Auto) Eos # (Auto) Baso # (Auto) Immature Gran # (Auto) Sodium Potassium Chloride Carbon Dioxide Anion Gap BUN Creatinine Est Cr Clr Drug Dosing Est GFR ( Amer) Est GFR (Non-Af Amer) BUN/Creatinine Ratio Glucose Calcium Magnesium Fld Lyme DNA (PCR) Fluid Comment CSF Appearance Clear CSF Color Colorless Xanthrochromic No xanthochromia CSF Specific [place] 1.005 L CSF WBC 1 CSF RBC 4 CSF Cell Count Tube # 3 CSF Chemistry Tube # CSF Glucose CSF LDH Pending CSF Total Protein CSF VDRL CSF C.neoform/gat PCR Not Detected CSF CMV DNA (PCR) Not Detected CSF Enterovirus (PCR) Not Detected CSF E. coli K1 (PCR) Not Detected CSF H. influenzae (PCR) Not Detected CSF HSV I (PCR) Not Detected CSF HSV II (PCR) Not Detected CSF HHV 6 (PCR) Not Detected CSF L.monocytogenes PCR Not Detected CSF N. meningitidis PCR Not Detected CSF Parechovirus (PCR) Not Detected CSF S. agalactiae (PCR) Not Detected CSF S. pneumoniae (PCR) Not Detected CSF VZV DNA (PCR) Not Detected Vancomycin Trough Lyme Specimen Source Cryptococcus Source Cancelled Cryptococcal Ag (Latex) Cancelled HIV (1&2) Ag & Ab Conf 04/18/22 04/18/22 04/19/22 11:45 11:45 03:20 WBC RBC Hgb Hct MCV MCH MCHC RDW Std Deviation RDW Coeff of Roland Plt Count MPV Immature Gran % (Auto) Neut % (Auto) Lymph % (Auto) [place] % (Auto) Eos % (Auto) Baso % (Auto) Neut # (Auto) Lymph # (Auto) [place] # (Auto) Eos # (Auto) Baso # (Auto) Immature Gran # (Auto) Sodium Potassium Chloride Carbon Dioxide Anion Gap BUN Creatinine Est Cr Clr Drug Dosing Est GFR ( Amer) Est GFR (Non-Af Amer) BUN/Creatinine Ratio Glucose Calcium Magnesium Fld Lyme DNA (PCR) Pending Fluid Comment CSF Appearance CSF Color Xanthrochromic CSF Specific [place] CSF WBC CSF RBC CSF Cell Count Tube # CSF Chemistry Tube # 1 CSF Glucose 80 H CSF LDH Cancelled CSF Total Protein 44.7 CSF VDRL Pending CSF C.neoform/gat PCR CSF CMV DNA (PCR) CSF Enterovirus (PCR) CSF E. coli K1 (PCR) CSF H. influenzae (PCR) CSF HSV I (PCR) CSF HSV II (PCR) CSF HHV 6 (PCR) CSF L.monocytogenes PCR CSF N. meningitidis PCR CSF Parechovirus (PCR) CSF S. agalactiae (PCR) CSF S. pneumoniae (PCR) CSF VZV DNA (PCR) Vancomycin Trough Lyme Specimen Source Pending Cryptococcus Source Pending Pending Cryptococcal Ag (Latex) Pending Pending HIV (1&2) Ag & Ab Conf 04/19/22 04/19/22 04/19/22 03:20 03:20 03:20 WBC RBC Hgb Hct MCV MCH MCHC RDW Std Deviation RDW Coeff of Roland Plt Count MPV Immature Gran % (Auto) Neut % (Auto) Lymph % (Auto) [place] % (Auto) Eos % (Auto) Baso % (Auto) Neut # (Auto) Lymph # (Auto) [place] # (Auto) Eos # (Auto) Baso # (Auto) Immature Gran # (Auto) Sodium Potassium Chloride Carbon Dioxide Anion Gap BUN Creatinine 1.17 Est Cr Clr Drug Dosing 74.9 Est GFR ( Amer) 82.6 Est GFR (Non-Af Amer) 71.3 BUN/Creatinine Ratio Glucose Calcium Magnesium Fld Lyme DNA (PCR) Fluid Comment CSF Appearance CSF Color Xanthrochromic CSF Specific [place] CSF WBC CSF RBC CSF Cell Count Tube # CSF Chemistry Tube # CSF Glucose CSF LDH CSF Total Protein CSF VDRL CSF C.neoform/gat PCR CSF CMV DNA (PCR) CSF Enterovirus (PCR) CSF E. coli K1 (PCR) CSF H. influenzae (PCR) CSF HSV I (PCR) CSF HSV II (PCR) CSF HHV 6 (PCR) CSF L.monocytogenes PCR CSF N. meningitidis PCR CSF Parechovirus (PCR) CSF S. agalactiae (PCR) CSF S. pneumoniae (PCR) CSF VZV DNA (PCR) Vancomycin Trough 13.9 Lyme Specimen Source Cryptococcus Source Cryptococcal Ag (Latex) HIV (1&2) Ag & Ab Conf Pending 04/19/22 04/19/22 08:00 08:00 WBC 5.68 RBC 3.08 L Hgb 9.5 L Hct 27.9 L MCV 90.6 MCH 30.8 MCHC 34.1 RDW Std Deviation 45.1 RDW Coeff of Roland 13.7 Plt Count 101 L MPV 8.7 L Immature Gran % (Auto) 0.4 Neut % (Auto) 55.5 Lymph % (Auto) 38.2 [place] % (Auto) 5.3 Eos % (Auto) 0.2 Baso % (Auto) 0.4 Neut # (Auto) 3.16 Lymph # (Auto) 2.17 [place] # (Auto) 0.30 Eos # (Auto) 0.01 Baso # (Auto) 0.02 Immature Gran # (Auto) 0.02 Sodium 141 Potassium 3.6 Chloride 109 H Carbon Dioxide 28 Anion Gap 4 BUN 26 H Creatinine 1.18 Est Cr Clr Drug Dosing 74.3 Est GFR ( Amer) 81.7 Est GFR (Non-Af Amer) 70.5 BUN/Creatinine Ratio 22.0 H Glucose 94 Calcium 8.8 Magnesium 2.2 Fld Lyme DNA (PCR) Fluid Comment CSF Appearance CSF Color Xanthrochromic CSF Specific [place] CSF WBC CSF RBC CSF Cell Count Tube # CSF Chemistry Tube # CSF Glucose CSF LDH CSF Total Protein CSF VDRL CSF C.neoform/gat PCR CSF CMV DNA (PCR) CSF Enterovirus (PCR) CSF E. coli K1 (PCR) CSF H. influenzae (PCR) CSF HSV I (PCR) CSF HSV II (PCR) CSF HHV 6 (PCR) CSF L.monocytogenes PCR CSF N. meningitidis PCR CSF Parechovirus (PCR) CSF S. agalactiae (PCR) CSF S. pneumoniae (PCR) CSF VZV DNA (PCR) Vancomycin Trough Lyme Specimen Source Cryptococcus Source Cryptococcal Ag (Latex) HIV (1&2) Ag & Ab Conf Current Inpatient Medications Current Inpatient Medications: Current Inpatient Medications Buprenorphine/Naloxone (Buprenorphine/Naloxone 8/2 Mg Tab) 1.5 tab SL DAILY [facility] Stop: 05/17/22 08:59 Last Admin: 04/19/22 08:42 Dose: 1.5 tab Heparin Sodium (Porcine) (Heparin Sod 5,000 Unit/0.5 Ml Vial) 5,000 units SQ Q12H [facility] Stop: 05/19/22 11:59 Last Admin: 04/19/22 11:26 Dose: 5,000 units Ceftriaxone Sodium 2,000 mg/ (Dextrose) 70 mls @ 140 mls/hr IV Q12H [facility] Stop: 04/27/22 17:59 Last Infusion: 04/19/22 06:23 Dose: Infused Vancomycin HCl 750 mg/ Sodium (Chloride) 265 mls @ 200 mls/hr IV Q12H [facility]; Protocol Stop: 04/28/22 15:59 Last Infusion: 04/19/22 05:32 Dose: Infused Thiamine HCl 500 mg/ Sodium (Chloride) 55 mls @ 210 mls/hr IV Q8H [facility] Stop: 04/19/22 17:59 Last Infusion: 04/19/22 03:38 Dose: Infused Thiamine HCl 500 mg/ Sodium (Chloride) 55 mls @ 210 mls/hr IV TODAY@0900 ONE Stop: 04/20/22 09:15 Levetiracetam (Levetiracetam 250 Mg Tab) 750 mg PO BID [facility] Stop: 05/19/22 20:59 Miscellaneous (Remove Nicoderm Patch) 1 each N/A DAILY@0859 [facility] Stop: 05/19/22 08:58 Last Admin: 04/19/22 08:39 Dose: 1 each Miscellaneous Information (Vancomycin Consult Active) 1 each N/A UD PRN PRN Reason: Consult Stop: 05/17/22 17:45 Nicotine (Nicotine 14 Mg/24 Hr Patch) 14 mg TD QAM [facility] Stop: 05/18/22 13:29 Last Admin: 04/19/22 08:43 Dose: 14 mg Thiamine HCl (Thiamine Hcl 100 Mg Tab) 100 mg PO DAILY [facility] Stop: 05/21/22 08:59
--- NOTE | 2022-04-19 13:23 | Neurology Progress Note ---
Date of Service April 19, 2022 Assessment & Plan (1) Encephalopathy: (2) Complex partial seizure disorder: Plan Patient's acute encephalopathy appears to have nearly resolved. No evidence of meningoencephalitis on recent lumbar puncture. No evidence of acute or subacute process on recently completed brain MRI. EEG this morning normal as well. The exact reason for patient's acute encephalopathy remains unclear although he may have been delirious or encephalopathic in the context of recent seizure activity. An adverse reaction to medication or substance use not completely excluded. For the time being, I would recommend that he continue with lamotrigine 750 mg p.o. twice daily. I would also recommend that he resume lamotrigine. Would start with a lower dosage, however, 75 mg p.o. twice daily for 1 week, then increase to 100 mg p.o. twice daily thereafter. Plan to continue with both lamotrigine and Keppra for the time being. Patient may follow-up with me or an WILLIAM in neurology clinic in 2 to 3 weeks after discharge for ongoing medication adjustment. Admission and Anticipated Discharge Date Admission Date: April 18, 2022 Subjective Follow-up for encephalopathy, complex partial seizures Patient is considerably improved this morning, awake, alert, oriented, attentive, appropriate. Denies symptoms such as headache, vision disturbance, or focal weakness. No tremors or seizure activity. Lumbar puncture completed yesterday in radiology, CSF normal including meningoencephalitis bio fire panel. EEG completed this morning as well, no abnormalities. IV Keppra has been discontinued in favor of tablets. Has not restarted his outpatient lamotrigine regimen yet. Acyclovir has been discontinued. Review of Systems Eyes: no blind spots and no diplopia Neurologic: no localized weakness, no loss of sensation and no headache(s) Results & Data ([facility]) Vital Signs (Past 12 Hours) Vital Signs Temp Pulse Resp BP Pulse Ox O2 Del Method 04/19/22 09:01 145/83 H 04/19/22 09:01 82 20 98 04/19/22 09:00 82 18 97 04/19/22 08:01 110/74 04/19/22 08:01 36.8 C 91 H 18 94 Room Air 04/19/22 08:00 65 15 96 04/19/22 07:00 68 17 92 04/19/22 07:00 125/69 04/19/22 06:00 55 L 14 124/67 96 Room Air 04/19/22 05:00 58 L 12 113/64 97 04/19/22 04:00 36.7 C 60 15 117/70 96 Room Air 04/19/22 03:00 71 15 110/60 96 04/19/22 02:00 58 L 11 L 116/63 97 Exam (Neuro) Neurologic: Oriented to:: Person and Place Memory: Remote Intact Attention: Span Intact and Concentration Intact Speech Fluency: negative Dysarthria or Dysfluency Fund of Knowledge: Vocabulary Cranial Nerves: Normal II, III, IV, , V, VII, VIII, IX, X, XI and XII Motor Strength: Normal Lower Extremities and Normal Upper Extremities Muscle Bulk/Involuntary Movements: No Involuntary Movements PG Care Time/CCT Total # of Minutes Spent Total Time Spent with Patient: Total time spent is greater than 50% in coordination of care (as documented) at patient's floor/unit and/or counseling patient: Coding Level of Care Code 75474 Subseq Hosp Care Lvl 2 Diagnoses Encephalopathy G93.40 Complex partial seizure disorder G40.209
[2022-04-19] MEDS: levETIRAcetam 750 MG in 0.9 % SODIUM CHLORIDE 100 ML IV SCH (18:06)
[2022-04-19] MEDS: levETIRAcetam 250 MG TAB PO SCH (20:05)
[2022-04-19] MEDS: NICOTINE 21 MG/24 HR TDSY TD SCH (20:06)
[2022-04-20] MEDS: VANCOMYCIN HCL 750 MG in SODIUM CHLORIDE 0.9% 250 ML IV SCH (04:09)
[2022-04-20] MEDS: cefTRIAXone SODIUM 2,000 MG in DEXTROSE 5% 50 ML IV SCH (06:10)
--- NOTE | 2022-04-20 07:29 | Hospitalist Progress Note ---
Date of Service April 20, 2022 Assessment & Plan (1) Metabolic encephalopathy: Plan: 52-year-old male past medical history significant for depression, migraine, complex partial seizures admitted for metabolic encephalopathy, with mental status since resolved. Metabolic encephalopathy: Resolved. Presented via EMS due to altered mental status per partner, with agitation in ER and erratic odd behaviors. In the days leading up had several migraine headaches and had taken Imitrex once a day for about three days. Admission alcohol level negative, and urine tox screen is negative. Salicylate and Tylenol levels negative. LP studies not suggestive of meningoencephalitis. Lyme and RPR negative. COVID-19 negative. TSH normal. Ammonia level normal. Creatinine 1.42, baseline. Normal urine and serum osmolality without osmolar gap. CT head without evidence of acute intracranial findings. Brain MRI with seizure protocol without evidence of temporal lobe edema. Urinalysis, chest x-ray without evidence of infection. No fevers or leukocytosis. Procalcitonin normal. UCx no growth @ 48 hours. BCx POSITIVE for alpha Strep not S. pneumo/Enterococcus, gamma Strep not Enterococcus. - Continue ceftriaxone for now with ID consult tomorrow. Neurology consulted and appreciate recommendations: treatment of seizure disorder as described below. No evidence of meningoencephalitis and EEG normal today. Psychiatry consulted and appreciate recommendations: 302 warrant removed, and no longer requires 1-to-1. Do not suspect primary psychiatric condition as cause of AMS. (2) Complex partial seizure disorder: Plan: History of. Not impossible that patient had seizure prior to admission, and had prolonged post-ictal state, however MRI and EEG without evidence of seizure. Keppra load 1500mg given, and dose increased to 750mg twice daily due to improvement in renal function. Resume Lamictal at 75mg BID x1 week, then 100mg BID thereafter. Follow up with Neurology office in 2 weeks for further dose titration. (3) Scrotal mass: Plan: With complaints of scrotal mass and swelling on 04/19. US scrotum suggests cyst vs. abscess. Urology consulted and appreciate recommendations: mass removed in OR today, no signs of infection. Continue ceftriaxone for now. Tylenol scheduled, with morphine as needed for severe/breakthrough pain in early post-op period. Avoid grinder lap narcotics given substance use disorder history. (4) History of drug abuse in remission: Plan: History of drug use in remission. Patient is on Suboxone and per patient's partner he has not missed any doses or taking extra doses. Patient denies frequent alcohol use. It is interesting that the patient felt better after sedation for surgery (midazolam and propofol), unclear why this would be the case, though these could be used in treatment of alcohol withdrawal/DTs. (5) CKD (chronic kidney disease): Plan: CKD with a baseline creatinine around 1.5, though has had a large range over the last several months. Avoid nephrotoxins and renally dose medications. Creatinine 1.46 today. (6) Migraine: Plan: History of migraine on Imitrex as needed. (7) Anemia: Plan: History of with hemoglobin 1012 over the last several years. Likely anemia of chronic disease. Plan Full code Regular diet Ambulate on demand, low risk of DVT Med/Surg Admission and Anticipated Discharge Date Admission Date: April 18, 2022 Subjective Patient without acute events overnight. Patient was evaluated following surgery for scrotal mass removal. He endorses pain in his genital region, however had just received Tylenol when I saw him. He reports that since waking up from surgery, he feels completely clear with regard to his mentation and even feels better now than he did prior to being sedated for surgery. Review of Systems Constitutional: no fever and no chills Respiratory: no cough and no dyspnea Cardiovascular: no chest pain and no palpitations Gastrointestinal: no abdominal pain, no nausea and no vomiting Genitourinary: + testicle pain; no dysuria or no hematuria Physical Exam Constitutional: well developed Eyes: PERRL, conjunctivae normal, anicteric sclerae Respiratory: normal respiratory effort, lungs clear to auscultation Cardiovascular: RRR, no murmur, no edema Gastrointestinal (Abdomen): normal bowel sounds, soft, nontender, no hepatosplenomegaly Musculoskeletal: no cyanosis or clubbing, extremities motor strength 5/5 Skin: no rashes, warm and dry Neurologic: PERRL, EOMI, accommodation nl, no face palsy, no dysarthria Genitourinary: Scrotal exam deferred due to pain, had just returned from surgical suite Results & Data Results & Data ([facility]) Vital Signs (Past 12 Hours) Vital Signs Temp Pulse Resp BP Pulse Ox O2 Del Method 04/20/22 04:00 37.0 C 64 19 119/72 95 Room Air 04/19/22 23:00 37.1 C 75 18 117/67 97 Room Air 04/19/22 19:34 Room Air PG Care Time/CCT Total # of Minutes Spent Total Time Spent with Patient: Total time spent is greater than 50% in coordination of care (as documented) at patient's floor/unit and/or counseling patient: Coding Level of Care Code 29514 Subseq Hosp Care Lvl 3 Diagnoses Metabolic encephalopathy G93.41 Complex partial seizure disorder G40.209 Scrotal mass N50.89 History of drug abuse in remission F19.11 CKD (chronic kidney disease) N18.9 Migraine G43.909 Anemia D64.9
--- NOTE | 2022-04-20 08:08 | Urology Progress Note ---
Date of Service April 20, 2022 Assessment & Plan (1) Scrotal mass: (2) Scrotal abscess: Plan 52yo M admitted with metabolic encephalopathy (now resolved) with new complaints of scrotal mass and swelling. A scrotal ultrasound was obtained and demonstrated a midline scrotal wall complex fluid collection, possibly representing an abscess versus cystic mass. -Afebrile and hemodynamically stable. -No leukocytosis, creatinine 1.42 today. -Urine culture 04/17 negative; Blood cultures 04/17 prelim alpha strep not enterococcus, repeat pending. -Estrada intact, draining clear yellow urine. -Imaging and plan of care reviewed with Dr. Alcala. -Will plan to proceed to the OR today for scrotal exploration, possible resection of mass, possible incision and drainage of abscess depending on findings. Risks/benefits discussed, pt agreeable to proceeding. -Risks and benefits to also be reviewed with patient by Dr. Alcala. OR notified. Covid negative. Covered with scheduled IV Vancomycin and Ceftriaxone. -Keep NPO. -Urology will follow. Admission and Anticipated Discharge Date Admission Date: April 18, 2022 Subjective Pt examined at bedside this AM. Awake, resting in bed on arrival. No acute distress. No fevers or chills. Denies nausea or vomiting. Estrada intact, draining clear yellow urine. Has been NPO. Review of Systems Constitutional: as per Subjective / HPI Gastrointestinal: as per Subjective / HPI Genitourinary: + as per Subjective / HPI Physical Exam Constitutional: cooperative and comfortable; no acute distress Respiratory: normal respiratory effort; no respiratory distress and no labored breathing Skin: No visible rashes or lesions to exposed skin areas Neurologic: moves all extremities and awake Psychiatric: A+Ox3, euthymic affect Genitourinary: Estrada catheter intact. Midline scrotal mass noted with firm/fluctuant area. No crepitus. No scrotal edema or erythema. Non-tender with palpation. No open areas or drainage noted on exam. Results & Data ([facility]) Vital Signs (Past 12 Hours) Vital Signs Temp Pulse Resp BP Pulse Ox O2 Del Method 04/20/22 07:47 36.8 C 69 20 126/74 97 Room Air 04/20/22 04:00 37.0 C 64 19 119/72 95 Room Air 04/19/22 23:00 37.1 C 75 18 117/67 97 Room Air PG Care Time/CCT Total # of Minutes Spent Total Time Spent with Patient: Total time spent is greater than 50% in coordination of care (as documented) at patient's floor/unit and/or counseling patient: Coding Level of Care Code 88791 Subseq Hosp Care Lvl 2 Diagnoses Scrotal mass N50.89 Scrotal abscess N49.2
[2022-04-20] MEDS: NICOTINE 21 MG/24 HR TDSY TD SCH (08:30)
[2022-04-20 08:31] LABS: Hematocrit (blood only) 28.9 % (40.1-51.0); Hemoglobin 9.9 g/dl (14.0-18.0); Mean Corpuscular Hgb Conc 34.3 g/dL (32.0-36.0); Mean Corpuscular Volume 90.6 fL (80.0-100.0); Mean Platelet Volume 9.9 fL (9.4-12.4); Platelet Count 107 K/uL (130-400); RDW Coefficient of Variation 13.8 % (11.5-14.5); Red Blood Count 3.19 M/uL (4.63-6.08); White Blood Count 5.05 K/ul (4.8-10.8)
[2022-04-20] MEDS: THIAMINE HCL 100 MG TAB PO SCH (08:31)
[2022-04-20] MEDS: lamoTRIgine 25 MG TAB PO SCH ×2 (08:31→21:30)
[2022-04-20] MEDS: levETIRAcetam 250 MG TAB PO SCH ×2 (08:31→21:30)
[2022-04-20] MEDS: BUPRENORPHINE/NALOXONE 8/2 MG TAB SL SCH (08:37)
[2022-04-20 08:44] LABS: Creatinine Clr Calc Pharmacy 61.7 ml/min; Est GFR (African American) 65.4 ml/min; Est GFR (Non-African American) 56.4 ml/min
[2022-04-20 09:00] LABS: Basophils # (auto) 0.03 K/uL (0-0.2); Basophils % (auto) 0.6 %; Eosinophils # (auto) 0.04 K/uL (0-0.50); Eosinophils % (auto) 0.8 %; Immature Granulocytes # (auto) 0.01 K/uL (0.00-0.02); Immature Granulocytes % (auto) 0.2 %; Lymphocytes # (auto) 2.77 K/uL (1.2-3.4); Lymphocytes % (auto) 54.9 %; Monocytes # (auto) 0.26 K/uL (0.24-0.82); Monocytes % (auto) 5.1 %; Neutrophils # (auto) 1.94 K/uL (1.4-6.5); Neutrophils % (auto) 38.4 %
[2022-04-20] MEDS ORDERED: THIAMINE HCL 500 MG in SODIUM CHLORIDE 0.9% 50 ML IV ONE (09:00)
[2022-04-20] MEDS: HEPARIN SOD 5,000 UNIT/0.5 ML VIAL SQ SCH (11:10)
[2022-04-20] MEDS ORDERED: MIDAZOLAM HCL 1 MG/ML 2ML VIAL ONE ×3 (11:50→14:48)
[2022-04-20] MEDS ORDERED: fentaNYL citrate 100 MCG/2 ML VIAL ONE ×2 (11:51→14:27)
--- NOTE | 2022-04-20 11:56 | Anesthesiology Consultation ---
Date of Service April 20, 2022 Assessment & Plan (1) Encounter for pre-operative examination: Chart Review Chart Review: Acceptable Risk for Surgery History Surgery Operation Date: 04/20/22 07:00 Proposed Procedures p Exploration Scrotum, Resection of Mass, Possible Incision and Drainage - Alexey Alcala, Height/Weight Height: 5 ft 10 in Weight: 71.7 kg Allergies Allergy/AdvReac Type Severity Reaction Status Date / Time phenytoin Allergy Intermediate HIVES Verified 03/26/22 13:25 valproic acid Allergy Intermediate HIVES Verified 03/26/22 13:25 aspirin AdvReac Unknown BRUISING Verified 03/26/22 13:25 Medications Home Medications Medication Instructions Recorded Confirmed Last Taken buprenorphine 8 mg-naloxone 2 mg 1.5 tab sublingual DAILY 01/27/22 03/26/22 Unknown sublingual tablet hydroxyzine HCl 10 mg tablet 10 mg PO BID PRN Anxiety 01/27/22 03/26/22 Unknown ibuprofen 200 mg tablet 400 - 600 mg PO Q8 PRN Pain 01/27/22 03/26/22 Unknown propranolol 20 mg tablet 20 mg PO BID #60 tabs 03/26/22 03/26/22 Unknown sumatriptan succinate 100 mg tablet 100 mg PO DIRECTED PRN Migraine 03/26/22 03/26/22 Unknown Headache #9 tabs lamotrigine 100 mg tablet 100 mg PO BID 30 days #60 tabs 04/05/22 Unknown lamotrigine 25 mg tablet (Lamictal) 25 mg PO BID 30 days #60 tabs 04/09/22 Unknown Active Medications Generic Name Dose Route Start Last Admin Trade Name Matthieu PRN Reason Stop Dose Admin Buprenorphine/Naloxone 1.5 tab 04/17/22 09:00 04/20/22 08:37 Buprenorphine/Naloxone 8/2 Mg Tab SL 05/17/22 08:59 1.5 tab DAILY ELVIN Administration Heparin Sodium (Porcine) 5,000 units 04/19/22 12:00 04/20/22 11:10 Heparin Sod 5,000 Unit/0.5 Ml Vial SQ 05/19/22 11:59 Not Given [facility] Vancomycin HCl 750 mg/ Sodium 265 mls @ 200 mls/hr 04/18/22 16:00 04/20/22 05:54 Chloride IV 04/28/22 15:59 Infused Q12H [facility] Infusion Protocol Lamotrigine 75 mg 04/19/22 21:00 04/20/22 08:31 Lamotrigine 25 Mg Tab PO 05/19/22 20:59 75 mg BID ELVIN Administration Levetiracetam 750 mg 04/19/22 21:00 04/20/22 08:31 Levetiracetam 250 Mg Tab PO 05/19/22 20:59 750 mg BID ELVIN Administration Miscellaneous 1 each 04/19/22 08:59 04/19/22 20:08 Remove Nicoderm Patch N/A 05/19/22 08:58 1 each DAILY@[id number] ELVIN Administration Nicotine 21 mg 04/19/22 19:30 04/20/22 08:30 Nicotine 21 Mg/24 Hr Tdsy TD 05/19/22 19:29 21 mg QAM ELVIN Administration Thiamine HCl 100 mg 04/20/22 09:00 04/20/22 08:31 Thiamine Hcl 100 Mg Tab PO 05/20/22 08:59 100 mg DAILY ELVIN Administration NPO Last Intake of Fluids Comment: Midnight Last Intake of Solids Comment: Midnight Past Medical History Medical History Abdominal pain Abdominal pain Abdominal pain Abscessed tooth Complex partial seizure Facial cellulitis Facial cellulitis Facial cellulitis GI bleed GI bleed Migraine Tobacco use disorder (02/26/13) Past Family History Family History Father Heart disease Mother Cancer Past Surgical History Surgical History History of cholecystectomy History of hand surgery Social History Smoking Status: Unknown if ever smoked Hx Substance Use: Yes Last Used Substance Other:: unknown Physical Exam Vital Signs Last Vital Signs Temp 36.8 C 04/20/22 13:36 Pulse 86 04/20/22 13:36 Resp 16 04/20/22 13:36 BP 144/81 H 04/20/22 13:36 Pulse Ox 98 04/20/22 13:36 O2 Del Method 04/20/22 13:36 Testing Laboratory Results 04/20/22 08:13 04/20/22 08:13 Urine Color Yellow 04/17/22 16:05 Urine Appearance Clear (Clear) 04/17/22 16:05 Urine pH 5.5 (4.5-7.5) 04/17/22 16:05 Ur Specific [place] 1.016 (1.000-1.030) 04/17/22 16:05 Urine Protein 1+ (Negative) H 04/17/22 16:05 Urine Glucose (UA) Negative (Negative) 04/17/22 16:05 Urine Ketones Negative (Negative) 04/17/22 16:05 Urine Nitrite Negative (Negative) 04/17/22 16:05 Ur Leukocyte Esterase Negative (Negative) 04/17/22 16:05 Urine WBC (Auto) 1-5 /hpf (0-5) 04/17/22 16:05 Urine RBC (Auto) >30 /hpf (0-4) H 04/17/22 16:05 U Hyaline Cast (Auto) 0 /lpf (0-5) 04/17/22 16:05 U Epithel Cells (Auto) 5-10 /lpf (0-5) H 04/17/22 16:05 Urine Bacteria (Auto) Negative (Negative) 04/17/22 16:05 04/17/22 16:09 Aerobic Blood Culture - Final Blood Alpha strep not S.pne/enteroco Gamma strep not enterococcus Anaerobic Blood Culture - Final Alpha strep not S.pne/enteroco 04/19/22 09:20 Aerobic Blood Culture - Preliminary Blood No growth in Aerobic bottle after 24 hours. Anaerobic Blood Culture - Preliminary No growth in Anaerobic bottle after 24 hours. 04/19/22 09:14 Aerobic Blood Culture - Preliminary Blood No growth in Aerobic bottle after 24 hours. Anaerobic Blood Culture - Preliminary No growth in Anaerobic bottle after 24 hours. 04/18/22 11:45 Gram Stain - Final Cerebral Spinal Fluid CSF Culture - Final No growth 04/17/22 15:56 Aerobic Blood Culture - Preliminary Blood No growth in Aerobic bottle after 48 hours. Anaerobic Blood Culture - Preliminary No growth in Anaerobic bottle after 48 hours. 04/17/22 16:05 Urine Culture - Final Urine,Straight Cath No growth - less than 1,000 colonies/mL. Electrocardiogram Date: 04/19/22 Sinus bradycardia Minor Anterior ST elevation, most consistent with repolarization variant Otherwise normal ECG When compared with ECG of 18-APR-2022 10:46, No significant change was found Confirmed by Bhupinder Lawrence ([id number]) on 04/19/2022 11:56:06 AM
--- NOTE | 2022-04-20 14:03 | Pharmacy Report ---
Pharmacy PK ABX Note - Date of Service April 20, 2022 - Assessment and Plan Assessment 52 year old M originally receiving tx for meningitis which is likely ruled out at this time; one of two blood cultures also positive for strep which is likely contaminant. Pt now receiving IV vancomycin, ceftriaxone for scrotal abscess. CKD at baseline - SCr within notable trend (baseline ~1.5). Random Vanco level today came back at 20.5 approx 5 hours after AM administration. Held Vanco after PM (8pm) dose. AM random level also ordered Day # 3 of antimicrobial therapy. Plan Vancomycin * May resume vanco based on random level in the morning * Maintenance dose: 750 mg IV every 12 hours * Regimen is predicted to achieve target AUC/BEV of 400-600 mg/L.hr Pharmacy will continue to follow and will adjust dose/frequency as necessary. Thank you. Pharmacy has transitioned to AUC monitoring for vancomycin. AUC/BEV is the preferred PK/PD target and is associated with decreased risk of nephrotoxicity compared to traditional trough targets.
[2022-04-20] MEDS ORDERED: ONDANSETRON INJ 2 MG/ML 2 ML VIAL IV PRN (14:14)
[2022-04-20] MEDS ORDERED: HYDROmorphone INJ 1 MG/ML SYRINGE IV PRN (14:14)
[2022-04-20] MEDS ORDERED: ATROPINE SULFATE 0.1 MG/ML 10ML SYR IV PRN (14:14)
[2022-04-20] MEDS ORDERED: PROPOFOL IV EMULSION 10 MG/ML 20 ML VIAL IV ONE (14:29)
[2022-04-20] MEDS ORDERED: ONDANSETRON INJ 2 MG/ML 2 ML VIAL ONE (14:29)
[2022-04-20] MEDS ORDERED: LIDOCAINE 2% MPF LOCAL 5 ML VIAL INFIL ONE (14:29)
[2022-04-20] MEDS ORDERED: BUPIVACAINE 0.5 % 5 MG/1 ML MPF 30ML VIAL ONE (14:33)
--- NOTE | 2022-04-20 15:35 | Operative Report ---
PG Post Operative Report Pre & Post Diagnosis Operation Date: 04/20/22 07:00 Pre-Op Diagnosis: Scrotal Mass, AMS Post-Op Diagnosis: Scrotal Mass, AMS I identified the patient and participated in the time-out.: Yes Procedure Operation Date: 04/20/22 07:00 Actual Procedures Excision and Drainage of scrotal mass vs cyst vs abscess - Alexey Alcala DO Surgeon Alexey Alcala, II, DO Urgent Care Nurse Practitioner None Estimated Blood Loss 5 Findings Consistent with Post-Op Diagnosis Large approx 2.1 x 3.4 x 4.1 cm area of cystic mass vs lesion vs abscess. Appeared to have tract from skin to mass with fluid material present. Mass was subcutaneous and just deep to the median raphe of the scrotum Elliptical Excisional Dimensions were 5.3cm length x 3.8 cm width x 5.1 cm depth Specimens Scrotal Mass Drains None Anesthesia Type General Complications none Disposition Disposition: Recovery Room Indications Bothersome scrotal fluid collection with intermittent drainage and concern for possible abscess. No induration or erythema or drainage. Risks and benefits discussed at length. Description of Procedure Patient was consented and brought back to the operating room. Patient was placed under anesthesia in the supine position. Patient was prepped and draped in the regular sterile fashion. A time out was completed. With the time out completed and the patient prepped, the median raphe was marked and local injected into the subcutaneous tissues. An elliptical incision was marked and planned. The track from the fluid collection/cyst was noted just to the left of the median raphe over the mass. The incision was made with a scalpel and the deep tissues were dissected with bovie electrocautery. The mass was extra-scrotal and within the scrotal tissues. It did not appear to involve the inner chamber of the scrotum. The entire mass was able to be excised en-bloc without disruption. The skin overlying the mass was taken with the mass intact. The scrotal wall tissue was examined. No areas of lesion or other suspicious findings. No signs of infection, induration, necrosis, erythema, or significant inflammation. All bleeding was controlled with cautery. The entire area was examined. The dimensions of the excised area were documented as above after measurement. The deep and subcutaneous tissues were closed with a running 2-0 vicryl suture. A 2-0 Vicryl suture was then used to close the skin in a running horizontal mattress fashion. The area was cleaned. Adhesive placed. A scrotal support was placed with dressings. The patient was cleaned, aroused from anesthesia, and transferred to the pacu in stable condition having tolerated the procedure well with no complications. I was present and participated in all aspects of the procedure. Plan to have patient return to office in 3-4 weeks to discuss pathology and for wound check. Will have patient transfer back to floor for further management of on going medical issues. No sign of significant infection or possible source for patients acute illness and altered mental status. I attest to the content of the Intraoperative Record and any orders documented therein. Any exceptions are noted below.
--- NOTE | 2022-04-20 15:56 | Anesthesiology Progress Note ---
Date of Service April 20, 2022 Anesthesia Post Procedure Vital Signs Vital Signs: Temp Pulse Pulse Resp BP BP Pulse Ox 04/20/22 15:50 36.3 C L 54 L 14 114/65 98 04/20/22 15:40 60 15 112/71 98 04/20/22 15:32 60 17 111/71 99 04/20/22 13:36 36.8 C 86 16 144/81 H 98 04/20/22 11:54 36.5 C 61 20 145/89 H 97 04/20/22 10:35 04/20/22 07:47 36.8 C 69 20 126/74 97 04/20/22 04:00 37.0 C 64 19 119/72 95 04/19/22 23:00 37.1 C 75 18 117/67 97 04/19/22 19:34 04/19/22 18:08 36.8 C 72 18 160/75 H 97 O2 Del Method 04/20/22 15:50 Room Air 04/20/22 15:40 Room Air 04/20/22 15:32 Room Air 04/20/22 13:36 Room Air 04/20/22 11:54 Room Air 04/20/22 10:35 Room Air 04/20/22 07:47 Room Air 04/20/22 04:00 Room Air 04/19/22 23:00 Room Air 04/19/22 19:34 Room Air 04/19/22 18:08 Room Air Transfer of Care Handoff Completed per policy Notes Mental Status: alert / awake / arousable Patient Amnestic to Procedure: Yes Nausea / Vomiting: adequately controlled Pain: adequately controlled Airway Patency, RR, SpO2: stable & adequate BP & HR: stable & adequate Hydration State: stable & adequate Anesthetic Complications: no major complications apparent
[2022-04-20] MEDS ORDERED: KETOROLAC TROMETHAMINE 10 MG TABLET PO PRN (16:49)
[2022-04-20] MEDS ORDERED: MoRPHine SULFATE 2 MG/ML CARP IV PRN (17:04)
[2022-04-20] MEDS: ACETAMINOPHEN 500 MG TAB PO SCH (17:21)
[2022-04-20] MEDS ORDERED: MoRPHine SULFATE 2 MG/ML CARP IV STA (22:37)
--- NOTE | 2022-04-20 22:40 | Communication Note ---
Date of Service: April 20, 2022 Patient requested for vidal removal. I recommended against in setting of recent scrotal abscess I&D, Vidal is out. Bladder scan in AM.
[2022-04-21] MEDS: ACETAMINOPHEN 500 MG TAB PO SCH ×2 (00:36→08:26)
[2022-04-21] MEDS: HEPARIN SOD 5,000 UNIT/0.5 ML VIAL SQ SCH ×2 (00:36→11:25)
[2022-04-21] MEDS ORDERED: MoRPHine SULFATE 2 MG/ML CARP IV PRN (05:00)
[2022-04-21] MEDS ORDERED: cefTRIAXone SODIUM 2,000 MG in DEXTROSE 5% 50 ML IV SCH (06:00)
[2022-04-21] MEDS: lamoTRIgine 25 MG TAB PO SCH (08:25)
[2022-04-21] MEDS: THIAMINE HCL 100 MG TAB PO SCH (08:26)
[2022-04-21] MEDS: levETIRAcetam 250 MG TAB PO SCH (08:26)
[2022-04-21] MEDS: NICOTINE 21 MG/24 HR TDSY TD SCH (08:26)
[2022-04-21 08:29] LABS: Hemoglobin 10.5 g/dl (14.0-18.0); Mean Corpuscular Hemoglobin 30.7 pg (25.0-34.0); Mean Corpuscular Hgb Conc 33.9 g/dL (32.0-36.0); Mean Corpuscular Volume 90.6 fL (80.0-100.0); Platelet Count 136 K/uL (130-400); RDW Coefficient of Variation 13.2 % (11.5-14.5); RDW Standard Deviation 43.7 fL (36.4-46.3); Red Blood Count 3.42 M/uL (4.63-6.08); White Blood Count 6.39 K/ul (4.8-10.8)
[2022-04-21] MEDS: BUPRENORPHINE/NALOXONE 8/2 MG TAB SL SCH (08:31)
[2022-04-21 08:58] LABS: Calcium 9.4 mg/dl (8.5-10.1); Creatinine Clr Calc Pharmacy 64.9 ml/min; Est GFR (African American) 69.5 ml/min; Est GFR (Non-African American) 59.9 ml/min; Potassium 4.2 mmol/L (3.5-5.1)
[2022-04-21] MEDS ORDERED: THIAMINE HCL 100 MG TAB PO SCH (09:00)
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
[2022-04-21] MEDS ORDERED: AMOXICILLIN/CLAVULANATE 875 MG TAB PO SCH (17:00)
[2022-04-22 13:46] LABS: Cryptococcal Antigen Not Detected (Not Detected); Source Serum
[2022-04-26 13:51] LABS: Cryptococcal Antigen Not Detected (Not Detected); Lyme DNA PCR CSF or Synovial Not Detected (Not Detected); Lyme DNA Source CSF; Source CSF; VDRL Qualitative CSF Nonreactive (Nonreactive)
== END 2022-04-21 13:25 | disposition home or self-care (01) | DRG 988 ==
LOC: 2S 11:56 → ED 11:56 → SUATTDRO 04-17 01:01 → 2S 04-17 02:53 → 1E 04-17 09:05 → 2N 04-19 17:49
DX: R33.9 Retention of urine, unspecified; D63.8 Anemia in other chronic diseases classified elsewhere; N49.2 Inflammatory disorders of scrotum; R00.1 Bradycardia, unspecified; G25.3 Myoclonus; F17.210 Nicotine dependence, cigarettes, uncomplicated; T42.75XA Adverse effect of unspecified antiepileptic and sedative-hypnotic drugs, initial encounter; G40.209 Localization-related (focal) (partial) symptomatic epilepsy and epileptic syndromes with complex partial seizures, not intractable, without status epilepticus; F19.11 Other psychoactive substance abuse, in remission; R45.1 Restlessness and agitation; R74.01 Elevation of levels of liver transaminase levels; N18.9 Chronic kidney disease, unspecified; G43.909 Migraine, unspecified, not intractable, without status migrainosus; G93.41 Metabolic encephalopathy; Y92.239 Unspecified place in hospital as the place of occurrence of the external cause; R44.3 Hallucinations, unspecified; F31.81 Bipolar II disorder; R45.850 Homicidal ideations; F11.20 Opioid dependence, uncomplicated